=== PATIENT | male | born 1965 | race Caucasian/White ===

== ENCOUNTER → 2024-03-01 06:34 | Outpatient (REF) | payer BC, SELFPAY ==
[2024-03-01 07:13] LABS: Hematocrit 46.6 % (39.0-52.0); Hemoglobin 15.9 g/dL (13.0-18.0); Mean Corp Hgb Conc. 34.1 g/dL (33.0-37.0); Mean Corpuscular Hgb 29.9 pg (27.0-31.0); Mean Corpuscular Volume 87.8 fL (80.0-94.0); Mean Platelet Volume 9.9 fL (7.4-10.4); Platelet Count 155 10^3/uL (130-400); Red Blood Cell Count 5.31 10^6/uL (4.70-6.10); Red Cell Dist. Width 13.4 % (11.5-14.5); White Blood Cell Count 5.5 10^3/uL (4.8-10.8)
[2024-03-01 08:29] LABS: ALT (SGPT) 28 U/L (0-50); AST (SGOT) 27 U/L (17-59); Albumin 4.6 g/dl (3.5-5.0); Alkaline Phosphatase 72 U/L (38-126); Blood Urea Nitrogen 24 mg/dl (9-20); Calcium 9.7 mg/dl (8.4-10.2); Carbon Dioxide 29 mmol/L (22-30); Chloride 104 mmol/L (98-107); Glucose 179 mg/dl (70-99); HDL Cholesterol 44 mg/dl; Potassium 4.8 mmol/L (3.5-5.1); Sodium 141 mmol/L (135-145); Total Bilirubin 1.1 mg/dl (0.2-1.3); Total Cholesterol 287 mg/dl (50-199); Total Protein 7.1 g/dl (6.3-8.2); eGFR > 60.00
[2024-03-01 08:32] LABS: Triglyceride 465 mg/dl (10-149)
[2024-03-01 09:13] LABS: Microalbumin, Random Urine < 0.6 mg/dl (0.6-1.7)
[2024-03-01 11:04] LABS: Glycohemoglobin (HgbA1c) 9.8 % (4.0-5.6)
[2024-03-01 17:42] LABS: LDL Cholesterol, Direct 99 mg/dl
== END ==
LOC: REG 06:34
PROVIDERS: ATTENDING PHYSICIAN Family Medicine
DX: E11.65 Type 2 diabetes mellitus with hyperglycemia (principal)
CPT/HCPCS: 36415; 80053; 80061; 82043; 83036; 84443; 85027

== ENCOUNTER 2024-09-28 12:56 | Inpatient (IN) | payer OTHER, SELFPAY ==
[2024-09-28] VITALS (58 sets, daily range): BP systolic 113–205; BP diastolic 74–119; BMI 30.6
[2024-09-28 09:00] LABS: Glucose - Point of Care 372 mg/dl (70-99)
--- NOTE | 2024-09-28 09:08 | ED.GENMED ---
History of Present Illness
<Jasson Miguel PA-C - Last Filed: 09/28/24 10:37>
General
Chief Complaint: Chest Pain
Source: patient
Exam Limitations: none
Time Seen by Provider: 09/28/24 08:57
History of Present Illness
History of Present Illness:
59-year-old male [id number] diabetic presents with onset of chest tightness with shortness of breath this morning at 730. He was scraping the ice of the scar. During this episode he got diaphoretic. He sat down and rested and the pain
went away. 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 He decided to come here and while walking through the parking lot he developed more chest tightness. Currently on my exam he
has no chest discomfort. He has not been on his diabetic medication since June as he lost his insurance. He was told last visit at the doctor's blood pressure is mildly elevated but he is not treated for it. No recent travel or surgery. No
leg swelling or calf pain. No pleuritic discomfort. He took a full aspirin this morning
Past History
<Jasson Miguel PA-C - Last Filed: 09/28/24 10:37>
Past History
ED Past Medical History: NIDDM
ED Past Surgical History: Other (hernia)
Social History
Tobacco: Non-smoker
Alcohol: Occasional
Drug: Former user
Living: with family
Family History
Family History: Diabetes
Phy Exam
<Jasson Miguel PA-C - Last Filed: 09/28/24 10:37>
Physical Exam
Physical Exam:
General: Well-appearing male no acute respiratory distress
HEENT: Normocephalic atraumatic
Heart: Regular rate and rhythm
Lungs: Clear no wheeze
Abdomen is soft nontender nondistended
Extremities: No cyanosis or edema
Skin: Warm no rash
Scores
<Jasson Miguel PA-C - Last Filed: 09/28/24 10:37>
Heart Score for Chest Pain Patients
STEMI patient?: No
History: Highly Suspicious
ECG: Nonspecific Repolarization
Age: >45 - <65 years
Risk Factors: 1 or 2 Risk Factors
Troponin: </= Normal Limit
Heart Score for Chest Pain Patients: 5
Heart Score Risk: 20.3% MACE over next 6 weeks
Course
<Jasson Miguel PA-C - Last Filed: 09/28/24 10:37>
Orders/Labs/Results
Orders:
Orders
09/28/24 08:54
ECG [Electrocardiogram (*1)] Urgent
Reason for Study: Chest Pain
EKG- Treatment ONCE
09/28/24 09:08
CR Chest - 2 Views Urgent
Comment:
Reason For Exam: chest pain
09/28/24 09:11
Complete Blood Count/With Diff Urgent
Comprehensive Metabolic Panel Urgent
Glycohemoglobin (HgbA1c) Urgent
Troponin I Urgent
09/28/24 09:25
Labetalol HCl [Trandate] 10 mg IV NOW STA
09/28/24 09:45
0.9% Sodium Chloride 1000 ml [Nss] 1,000 ml IV BOLUS
09/28/24 10:18
Add On- LAB Routine
Tests Added?: hgbA1c
Abnormal Lab Results
09/28/24 09/28/24
08:59 09:11
WBC 4.6 L 10^3/uL
(4.8-10.8)
Abs Immat Gran (auto) 0.1 H 10^3/uL
(0-0.05)
Immature Gran % 1.8 H %
(0-0.5)
BUN 25 H mg/dl
(9-20)
Glucose 377 H mg/dl
(70-99)
POC Glucose 372 H mg/dl
(70-99)
09/28/24 09:11
09/28/24 09:11
Vital Signs
Initial and Last Documented VS:
Initial Vital Signs
Temp Pulse Resp Pulse Ox
98.3 F 93 16 98
09/28/24 08:52 09/28/24 08:52 09/28/24 08:52 09/28/24 08:52
Last Documented Vital Signs
Temp Pulse Resp BP Pulse Ox
98.3 F 73 11 163/97 99
09/28/24 08:52 09/28/24 10:30 09/28/24 10:30 09/28/24 10:00 09/28/24 10:30
<Abner Munguia, DO - Last Filed: 09/28/24 09:20>
Orders/Labs/Results
Orders:
Orders
09/28/24 08:54
ECG [Electrocardiogram (*1)] Urgent
Reason for Study: Chest Pain
EKG- Treatment ONCE
09/28/24 09:08
CR Chest - 2 Views Urgent
Comment:
Reason For Exam: chest pain
09/28/24 09:11
Complete Blood Count/With Diff Urgent
Comprehensive Metabolic Panel Urgent
Glycohemoglobin (HgbA1c) Urgent
Troponin I Urgent
09/28/24 09:25
Labetalol HCl [Trandate] 10 mg IV NOW STA
09/28/24 09:45
0.9% Sodium Chloride 1000 ml [Nss] 1,000 ml IV BOLUS
09/28/24 10:18
Add On- LAB Routine
Tests Added?: hgbA1c
Abnormal Lab Results
09/28/24 09/28/24
08:59 09:11
WBC 4.6 L 10^3/uL
(4.8-10.8)
Abs Immat Gran (auto) 0.1 H 10^3/uL
(0-0.05)
Immature Gran % 1.8 H %
(0-0.5)
BUN 25 H mg/dl
(9-20)
Glucose 377 H mg/dl
(70-99)
POC Glucose 372 H mg/dl
(70-99)
09/28/24 09:11
09/28/24 09:11
Vital Signs
Initial and Last Documented VS:
Initial Vital Signs
Temp Pulse Resp Pulse Ox
98.3 F 93 16 98
09/28/24 08:52 09/28/24 08:52 09/28/24 08:52 09/28/24 08:52
Last Documented Vital Signs
Temp Pulse Resp BP Pulse Ox
98.3 F 73 11 163/97 99
09/28/24 08:52 09/28/24 10:30 09/28/24 10:30 09/28/24 10:00 09/28/24 10:30
<Jasson Miguel PA-C - Last Filed: 09/28/24 10:37>
MDM/Problems Addressed
Differential Diagnosis Includes:
Concerning story with exertional chest comfort and shortness of breath and an uncontrolled diabetic hypertension. EKG shows sinus rhythm with nonspecific flattening laterally but no other obvious ischemic changes. Troponin pending. Chest x-ray
pending. Patient is at high risk for ACS. Do not suspect dissection or PE.
Discussed with emergency room attending
<Jasson Miguel PA-C - Last Filed: 09/28/24 10:37>
*Critical Care Note
Total Time (30-74mins, 75-104mins- exclusive of procedures): Not Applicable
<Jasson Miguel PA-C - Last Filed: 09/28/24 10:37>
Update Note
Update Note:
Initial troponin undetectable chest x-ray clear. Patient still pain-free. Seen by cardiology. Will keep in hospital for concern for ACS. He is likely uncontrolled diabetic and hypertensive. Hospitalist made aware spoke with cardiology
ED Attending Note
<Jasson Miguel PA-C - Last Filed: 09/28/24 10:37>
-
Portions of this chart may have been created with voice recognition software.� Occasional wrong word or��sound alike� substitutions may have occurred due to the inherent limitations of voice recognition software.
<Abner Munguia DO - Last Filed: 09/28/24 09:20>
ED Attending Note
Patient seen and examined by attending physician: Yes
I performed the substantive portion of visit, reviewed & personally made and approve the management plan that is documented in note by myself or MARY.: Yes
ED Attending Note:
I have seen and evaluated the patient with a [id number] encounter. I have spoken to the advance practicer provider and involved in the medical history, the physical exam, medical decision making.
Evaluation and management service: agree unless noted differently below.
Results interpretation: agree unless noted differently below.
Focused HPI: 59-year-old male presenting with very concerning story. He is developing chest discomfort with exertion that improves with rest. He does have a history of hypertension, high cholesterol and diabetes. He has been off of his medicine
for quite a while. Because he just renewed his insurance, his PCP just called his medicine back to the pharmacy. Patient has not started his medicines yet. Patient took a full aspirin prior to arrival
Physical exam: Sitting in bed comfortably. No acute distress. No active chest pain at rest
Medical Decision Making: Based on the past medical history and his concerning history, will have cardiology involved early with concern for ACS.
Discharge Plan
Departure
Patient Disposition: Admit
Date of Disposition: 09/28/24
Time of Disposition: 10:37
Presentation/result/management discussed w/ accepting MD/DO: Hospitalist
Discharge Problem:
Chest pain
Prescriptions:
No Action
glimepiride 4 MG tablet
8 mg PO DAILY
rosuvastatin 10 MG tablet
10 mg PO QPM
Referrals:
Ceferino Foley MD [Family Provider] -
Interventions
Interventions:
*Risk Screen - Suicide Last Done: 09/28/24 08:52
*General Assessment Last Done: 09/28/24 09:03
*Neglect/Abuse Screening Last Done: 09/28/24 08:52
ED- Fall Risk Assessment Last Done: 09/28/24 09:03
*ED COVID-19 Vaccine History Last Done: 09/28/24 09:03
ED- Cardiac Assessment Last Done: 09/28/24 09:03
Discharge Date and Time
Print Language: EAST TIMOR[place]
[2024-09-28 09:26] LABS: % Basophils 0.9 % (0-2); % Eosinophils 1.3 % (0-6); % Immature Granulocytes 1.8 % (0-0.5); % Lymphocytes 31.3 % (20.5-51.1); % Neutrophils 57.7 % (42.2-75.2); Absolute Eosinophils 0.1 10^3/uL (0-0.7); Absolute Immature Granulocytes 0.1 10^3/uL (0-0.05); Absolute Lymphocytes 1.4 10^3/uL (1.2-3.4); Absolute Monocytes 0.3 10^3/uL (0.1-0.6); Absolute Neutrophils 2.6 10^3/uL (1.4-6.5); Hematocrit 45.6 % (39.0-52.0); Hemoglobin 16.2 g/dL (13.0-18.0); Mean Corp Hgb Conc. 35.5 g/dL (33.0-37.0); Mean Corpuscular Volume 84.4 fL (80.0-94.0); Mean Platelet Volume 9.7 fL (7.4-10.4); Nucleated Red Blood Cells % 0 % (-); Platelet Count 155 10^3/uL (130-400); Red Cell Dist. Width 12.6 % (11.5-14.5); White Blood Cell Count 4.6 10^3/uL (4.8-10.8)
[2024-09-28] MEDS: TRANDATE 10 MG IV (09:32)
[2024-09-28 09:35] LABS: ALT (SGPT) 27 U/L (0-50); AST (SGOT) 24 U/L (17-59); Albumin 4.3 g/dl (3.5-5.0); Alkaline Phosphatase 101 U/L (38-126); Blood Urea Nitrogen 25 mg/dl (9-20); Calcium 9.4 mg/dl (8.4-10.2); Carbon Dioxide 29 mmol/L (22-30); Chloride 99 mmol/L (98-107); Estimated Creatinine Clearance 80 ml/min; Glucose 377 mg/dl (70-99); Potassium 4.4 mmol/L (3.5-5.1); Sodium 135 mmol/L (135-145); Total Bilirubin 0.9 mg/dl (0.2-1.3); Total Protein 7.6 g/dl (6.3-8.2); eGFR > 60.00
[2024-09-28 09:47] LABS: Troponin I < 0.012 ng/ml
[2024-09-28] MEDS: NSS 1000 IV (09:50)
--- NOTE | 2024-09-28 10:35 | CON.CAR ---
Addendum entered and electronically signed by Toña Vilchis MD 09/28/24 11:25:
I saw and examined the patient.
The Obstetrics Gynecology Physician's note was reviewed and I agree with the note.
Comment: Patient is a 59-year-old gentleman, obese with past medical history of type 2 diabetes, [id number]-[id number], not recently on medications due to insurance reasons, uncontrolled hypertension, family history of premature coronary artery
disease and remote history of cigarette smoking, quitting 4 years ago who presents with recurrent episodes of exertional substernal chest tightness associated with shortness of breath with 3 episodes recurrent since this morning of varying lengths
with concern for possible unstable angina in the setting of multiple cardiovascular risk factors.
Initial troponin I negative at less than 0.012. ECG with no acute ischemic changes.
Lab work and vital signs reviewed. On exam patient is well-appearing, no acute distress, mildly anxious, and daughter at bedside, regular rate, normal S1 and S2, no murmurs, rubs or gallops, abdomen is soft, nontender, nondistended with active
bowel sounds, obese, warm extremities without significant edema.
Recommendations:
1. Given concern for unstable angina, lengthy discussion was had with patient and his family in regards to recommendation for coronary angiogram to rule out obstructive CAD. After reviewing the risk and benefits, patient is agreeable and we will
move forward with urgent heart catheterization.
2. In the meantime, continue with medical therapy of ACS. Of note, patient took 324 mg of aspirin at home this morning prior to presentation to the emergency room.
3. Full echocardiogram to assess biventricular function and rule out any significant valvular abnormalities.
4. Further recommendations based on heart catheterization
Toña Vilchis MD, [facility], [facility]
Original Note:
Consultation
Consultation Request
Date/Time Consultation Performed: 09/28/24
Requesting Provider: Jasson Mukherjee PA-C
Performing Provider: Macrina Prince PA-C for Dr. Vilchis
Reason for Consultation: CP
Medical History
-
Chief Complaint: CP
History of Present Illness:
Patient is a 59-year-old male with past medical history of type 2 diabetes who presents to [facility] for evaluation of chest discomfort. He reports several weeks ago he started cycling for exercise. He reports with this he noted some
mild chest tightness, however he believes it improved after several days of continued exercise. He then states he stopped biking. This morning as he went out to scrape ice off his car, he developed central to left chest tightness with associated
diaphoresis. This was relieved with resting for about 30 minutes or so. He did take 324 mg aspirin at home. He reports he noted it again as he was walking into the ER. He is presently pain-free. He had been on an oral diabetic medication
however stopped it several months ago as he ran out and had lost his insurance. He was supposed to start the medication back today as he is now back on insurance. Most recent hgbA1c 03/01/24 was 9.8%. Initial trop negative. Cardiology consulted for
evaluation.
PMH:
DM2
Remote former smoker
Family history of CAD
Past Medical History
Past Medical History: Other (in HPI)
Social History
Tobacco: Former Smoker (remote)
Alcohol: Binge Drinker (occasional)
Personal:
Living: With Family
Employment: Employed
Family History
Family History: CAD
Allergies / Home Medications
Allergy/AdvReac Type Severity Reaction Status Date / Time
No Known Allergies Allergy Verified 09/28/24 08:52
�Medication �Instructions �Recorded �Confirmed �Type
glimepiride 4 mg tablet 8 mg PO DAILY 02/13/22 02/13/22 History
rosuvastatin 10 mg tablet 10 mg PO QPM 02/13/22 02/13/22 History
Review of Systems
-
History Source: Patient and Family
All other systems: Negative unless noted
Physical Exam
Vital Signs
Temp Pulse Resp BP Pulse Ox
98.3 F 73 11 163/97 99
09/28/24 08:52 09/28/24 10:30 09/28/24 10:30 09/28/24 10:00 09/28/24 10:30
Lab Results
09/28/24 09:11
09/28/24 09:11
Troponin I < 0.012 ng/ml 09/28/24 09:11
Physical Exam
General: No Apparent Distress and Comfortable
HEENT: Normocephalic, Anicteric and Moist Mucous Membranes
Respiratory: Clear and Non Labored Respirations
Cardiac: S1/S2 and Regular Rhythm
GI: Soft, Non Tender, Non Distended and Normal Bowel Sounds
Musculoskeletal: No Clubbing, No Cyanosis and No Edema
Skin: Warm and Dry
Neuro: AO x 3
Impression / Plan
-
Primary Flying I Instructor: none prior to admission
Assessment:
Presentation with CP, concern for USA
Negative trop x1
DM2
HTN
Remote former smoker
Family history of CAD
Plan:
-Patient presents with chest pain/tightness with story concerning for unstable angina
-Presently pain-free
-Troponin negative x 1, trend to peak
-EKG without acute ischemic abnormalities
-Chest x-ray without acute process
-Discussed options for further evaluation of chest discomfort, and given risk factors, and clinical story, would favor proceeding with cardiac catheterization today. Reviewed procedure with patient and family at bedside. Last ate around 7 AM
-Status post 324 mg aspirin prior to arrival to ER today
-Consider initiation of IV heparin if not undergoing urgent cath
-Further recommendations based on results of cardiac catheterization
-Check CVE
-Check hemoglobin A1c
-Discussed with patient and family at bedside, he will need strict control of diabetes, blood pressure, cholesterol moving forward
-Discussed EtOH cessation
-Discussed with ER PA
Data Reviewed
-
EKG: Tracing Personally Visualized and interpreted
Radiology: Report Reviewed by me
Labs: Labs Reviewed by me
Old Records: Reviewed
[2024-09-28 11:05] LABS: Glycohemoglobin (HgbA1c) 11.1 % (4.0-5.6)
--- NOTE | 2024-09-28 11:25 | ITS.CL.CATH ---
Seed Core Operator - Catheterization
Cardiac Catheterization
Procedure Report:
LEFT HEART CATHETERIZATION
Date of Procedure: However 2024
Referring: [facility] emergency room
PROCEDURES:
1. Left heart catheterization, coronary angiogram.
2. Ultrasound-guided access
INDICATION: Patient is a 59-year-old gentleman, obese with past medical history of type 2 diabetes, [id number], not recently on medications due to insurance reasons, uncontrolled hypertension, family history of premature coronary artery
disease and remote history of cigarette smoking, quitting 4 years ago who presents with recurrent episodes of exertional substernal chest tightness associated with shortness of breath with 3 episodes recurrent since this morning of varying lengths
with concern for possible unstable angina in the setting of multiple cardiovascular risk factors.
Initial troponin I negative at less than 0.012. ECG with no acute ischemic changes.
ACCESS: [ ]
Ultrasound was utilized for vascular access. The radial artery was visualized under ultrasound, and the vessel was patent and pulsatile. An image was stored permanently in the patient's medical record. Under direct ultrasound guidance, a 6 Bengali
sheath was inserted into the artery using a micropuncture kit through a modified Seldinger technique.
HEMODYNAMICS : (mmHg)
AO (s/d) : [ ]
LV (s/d) : [ ]
LVEDP : [ ]
CORONARY FINDINGS
DOMINANCE: [ ]
LEFT MAIN: [ ]
LEFT ANTERIOR DESCENDING: [ ]
CIRCUMFLEX: [ ]
RIGHT CORONARY ARTERY: [ ]
VENTRICULOGRAPHY: [ ]
SEDATION: [ ] minutes of procedural sedation was utilized. An independent certified medical aide was present to assist with and help manage the patient's level of consciousness and physiologic status.
RADIATION SUMMARY: Fluoro Time (min): [ ], Dose (mGy): [ ], DAP (Gy.cm2) : [ ]
Closure Device: [ ]
CONCLUSIONS
[ ]
RECOMMENDATIONS
[ ]
Toña Vilchis MD, FACC, [facility]
[2024-09-28 12:22] LABS: ACT-LR - POC 219 Seconds (116-155)
[2024-09-28 13:00] LABS: Glucose - Point of Care 257 mg/dl (70-99)
--- NOTE | 2024-09-28 13:02 | PTCARENOTE ---
Patient arrived to IVU in bed. Right radial band intact with 10 cc of air, POX 96%. Right femoral a-line in place and zeroed. BP 148/67, HR 62, NSR. Patient awake and alert, chest pain free, call scott in reach
[2024-09-28 13:47] LABS: ACT-LR - POC 171 Seconds (116-155)
--- NOTE | 2024-09-28 13:50 | PN.DE.MGMTRT ---
Insulin Management
- -
09/28/2024: Diabetes Management Consult.
59 year old male with PMH: HTN, Obesity, h/o Smoking and T2DM. Pt presented to the ED with recurrent episodes of exertional substernal chest tightness associated with shortness of breath with 3 episodes recurrent of varying lengths with concern for
possible unstable angina in the setting of multiple cardiovascular risk factors. He is S/P Cardiac Cath with plans for CABG next week.
Pt is awake, alert, resting flat in bed, offers no complaints, able to discuss diabetes care. Brother at bedside.
Pt reports that he was taking insulin ~10 years ago when he was initially dx with diabetes and stopped taking his oral meds (doesn't remember the names), 3 months ago due to insurance reasons. Chart review indicates he was taking Glimepiride 8mg
daily. States he uses a CGM- Kamila 2 for glucose monitoring and sees Dr. Foley for diabetes care. A1C 11.1%, Cr 1.1, eGFR >60, Glucose on admission was 377(V), 372 POC, recent POC was 257. He is ordered moderate corrective insulin only. Will start
basal/bolus insulin- Lantus 15 units @ HS and NovoLog 7 units AC. Cont corrective insulin with meals
Will cont to follow and provide glucose meter and insulin instructions.
Diabetes History
- -
Type of Diabetes: 2 requiring insulin
Pre-Admission Diabetes Regimen
09/28/24
09:11
Creatinine 1.1
Lab Results
Hemoglobin A1c 11.1 % (4.0-5.6) H 09/28/24 09:11
Insulin Pump Settings
IP Diabetes Regimen
09/28/24 09/28/24 09/28/24
08:59 09:11 12:59
Glucose 377 H
POC Glucose 372 H 257 H
Patient Education
--- NOTE | 2024-09-28 13:51 | ITS.CL.CATH ---
Sericulturist - Catheterization
Cardiac Catheterization
Procedure Report:
LEFT HEART CATHETERIZATION
Date of Procedure: However 2024
Referring: [facility] emergency room
PROCEDURES:
1. Left heart catheterization, coronary angiogram.
2. Ultrasound-guided access
INDICATION: Patient is a 59-year-old gentleman, obese with past medical history of type 2 diabetes, ayi-[id number]-ijruypopi, not recently on medications due to insurance reasons, uncontrolled hypertension, family history of premature coronary artery
disease and remote history of cigarette smoking, quitting 4 years ago who presents with recurrent episodes of exertional substernal chest tightness associated with shortness of breath with 3 episodes recurrent since this morning of varying lengths
with concern for possible unstable angina in the setting of multiple cardiovascular risk factors.
Initial troponin I negative at less than 0.012. ECG with no acute ischemic changes.
ACCESS:
1. Right radial artery, 6 Malagasy sheath, under ultrasound guidance. Given significant right subclavian artery tortuosity, this access had to be aborted.
2. Right common femoral artery, 6 Malagasy sheath, under ultrasound guidance using a micropuncture kit.
Ultrasound was utilized for vascular access. The radial artery and femoral artery were visualized under ultrasound, and the vessel was patent and pulsatile. An image was stored permanently for each in the patient's medical record. Under direct
ultrasound guidance, a 6 Malagasy sheath was inserted into the artery using a micropuncture kit through a modified Seldinger technique.
HEMODYNAMICS : (mmHg)
AO (s/d) : 144/85
LV (s/d) : 160/4
LVEDP : 20
CORONARY FINDINGS
DOMINANCE: Left
LEFT MAIN: The left main artery is a large-caliber vessel which gives rise to the left anterior descending artery and the left circumflex artery. There is minimal luminal irregularities.
LEFT ANTERIOR DESCENDING: The left main a descending artery is a medium caliber vessel that gives rise to 2 major diagonal branches. Proximal LAD has a tubular 90 to 95% stenosis at the level of the takeoff of D1 which is a medium caliber vessel.
Ostial to proximal D1 has eccentric 80% stenosis. Mid LAD has eccentric 60 to 70% stenosis. Distal to apical LAD has 2 serial 70% stenoses.
CIRCUMFLEX: The left circumflex artery is a medium caliber, dominant vessel which gives rise to 2 small to medium caliber obtuse marginal branches. OM1 is a small to medium caliber vessel with eccentric 70% ostial stenosis. OM 2 is a small caliber
vessel with 80 to 85% stenosis in the midportion.
RIGHT CORONARY ARTERY: The right coronary artery is a small caliber, nondominant vessel with minimal luminal irregularities.
SEDATION: 60 minutes of procedural sedation was utilized. An independent medical billing assistant was present to assist with and help manage the patient's level of consciousness and physiologic status.
RADIATION SUMMARY: Fluoro Time (min): 8.7, Dose (mGy): 526.9, DAP (Gy.cm2) : 36.15
Closure Device: Vascular band over right radial artery, 10 cc of air. Right common femoral arterial sheath will be removed once ACT is less than 170 ms.
CONCLUSIONS
1. Proximal LAD has a tubular 90 to 95% stenosis at the level of the takeoff of D1 which is a medium caliber vessel. Ostial to proximal D1 has eccentric 80% stenosis. Mid LAD has eccentric 60 to 70% stenosis. Distal to apical LAD has 2 serial 70%
stenoses.
2. OM1 is a small to medium caliber vessel with eccentric 70% ostial stenosis.
3. Elevated LVEDP at 20 mmHg.
RECOMMENDATIONS
1. Given poorly controlled diabetes with a hemoglobin A1c of 11, the age of 59-year-old, heart team discussion with CT surgery consult in regards to best treatment strategy including coronary artery bypass grafting versus bifurcational PCI.
2. Full echocardiogram to assess biventricular function and rule out any significant valvular disease.
3. Wean radial band per protocol. Bedrest per protocol.
4. Aggressive management of cardiovascular risk factors.
5. Eventual referral for outpatient cardiac rehab.
Toña Vilcihs MD, FACC, [facility]
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
[2024-09-28] MEDS: NITROSTAT (SUBLINGUAL) 0.4 MG SL (14:01)
[2024-09-28] MEDS: TOPROL XL 25 MG PO (14:01)
--- NOTE | 2024-09-28 14:29 | CM ---
Reviewed chart. Met with Mr. George to review discharge plans. He states prior to admission he resides with his spouse in a one stroy home with five steps to enter. He states prior to admission he was independent with ambulation and adls. He
states he does not have any DME in the home. He thinks he has a prescription plan. Medical work-up in progress. The discharge plan is to return home with his spouse when medically stable.
[2024-09-28 14:30] LABS: INR 0.97; PT 13.4 Sec (11.4-14.6)
[2024-09-28 14:31] LABS: APTT 61.5 Sec (23.4-35.0)
--- NOTE | 2024-09-28 14:36 | HPS.HSE ---
Family Physician
-
Family Physician: Ceferino Foley
Chief Complaint
-
Chest tightness and shortness of breath
History of Present Illness
59-year-old gentleman with past medical history of diabetes mellitus type 2 for which he is on therapy as before but not on any medication due to insurance reasons currently. He was told he has high blood pressure but was not prescribed apparently
any medication. He has a premature family history of heart disease-father in his 60s with heart attack. He was remote tobacco use history 4 years ago. He presented with substernal chest tightness and feeling short of breath which is episodic
and this morning. He was also bit prolonged at this morning so he came to the hospital.
Initial workup which showed negative troponins and nonischemic EKG but there was a concern about unstable angina and went on to have a cardia catheterization today which apparently shows LAD and diagonal lesions( official report pending) and is
being referred to cardiothoracic surgery for evaluation.
Medical History
Past Medical History
Past Medical History: Reports HTN and NIDDM
Past Surgical History: Reports Other (hernia)
Social History
Tobacco: Former Smoker
Alcohol: Occasional
Personal:
Living: With Family
Employment: Employed
Family History
Family History: Early CAD
Allergies / Home Medications
Allergies reflects when Allergies were last updated in [employer]
Home Medications with original date entered in [employer]
Allergy/Medication List:
Allergies
Allergy/AdvReac Type Severity Reaction Status Date / Time
No Known Allergies Allergy Verified 09/28/24 08:52
Home Medications
glimepiride 4 mg tablet 8 mg PO DAILY 02/13/22
rosuvastatin 10 mg tablet 10 mg PO QPM 02/13/22
Review of Systems
-
A 12 point ROS was completed and negative except as noted: Yes
Physical Exam
Vital Signs
Vital Signs
Temp Pulse Resp BP Pulse Ox
98.4 F 66 20 140/92 98
09/28/24 13:02 09/28/24 14:15 09/28/24 13:02 09/28/24 14:06 09/28/24 14:15
Physical Exam
General: Comfortable
Respiratory: Clear and Non Labored Respirations; No Accessory Resp Muscle Use
Cardiac: S1/S2 and Regular Rhythm; No Tachycardia
GI: Soft and Non Tender
Musculoskeletal: No Edema
Neuro: AO x 3
Psych: Calm
Laboratory Results
-
09/28/24 09:11
09/28/24 09:11
Laboratory Results
PT 13.4 Sec (11.4-14.6) 09/28/24 14:06
INR 0.97 09/28/24 14:06
APTT 61.5 Sec (23.4-35.0) H 09/28/24 14:06
Total Bilirubin 0.9 mg/dl (0.2-1.3) 09/28/24 09:11
AST 24 U/L (17-59) 09/28/24 09:11
ALT 27 U/L (0-50) 09/28/24 09:11
Alkaline Phosphatase 101 U/L (38-126) 09/28/24 09:11
Troponin I < 0.012 ng/ml 09/28/24 09:11
Data Reviewed
-
Lab Data: Labs Reviewed by me
Impression/Plan
-
Patient with episodic chest tightness and shortness of breath concerning for unstable angina and discovered to have multivessel CAD. Currently asymptomatic without chest pain. Continue with IV heparin. Referred to cardiothoracic
surgery-evaluation pending. Continue with aspirin and beta-sammy. Continue with statins. Check lipid panel.
No evidence of MA based on troponins. No evidence of CHF currently.
Check an echocardiogram.
Poorly controlled diabetes mellitus type 2-patient's hemoglobin A1c 11.1 today. He was not on his medication due to financial reasons. When stable will start on metformin for now continue with IV insulin and postsurgery will consider SGLT2's.
Diabetic nurse practitioner consulted.
Xabovhmzfskq-gflhpotgj-hswiydfr with above cardiac medication and adjust doses as needed.
Full code
[2024-09-28] MEDS: NITROGLYCERIN PREMIX 250 IV (16:10)
--- NOTE | 2024-09-28 16:14 | PTCARENOTE ---
IV nitro at 5mcg/min started, 2 out 10 left chest pressure. 1 SL nitro given at 1400 with no change. BP 122/79
[2024-09-28 16:22] LABS: Glucose - Point of Care 262 mg/dl (70-99)
--- NOTE | 2024-09-28 16:53 | PTCARENOTE ---
left side chest pressure resolved, Nitro gtt at 5mcg/min
[2024-09-28] MEDS: CRESTOR 40 MG PO (17:56)
[2024-09-28] MEDS: NORVASC 2.5 MG PO (17:56)
[2024-09-28] MEDS: NOVOLOG FLEXPEN-MODERATE RESISTANCE 5 UNITS SC (18:03)
[2024-09-28] MEDS: NOVOLOG FLEXPEN 7 UNITS SC (18:04)
[2024-09-28 18:08] LABS: Glucose - Point of Care 276 mg/dl (70-99)
[2024-09-28] MEDS: HEPARIN 25000 UNITS/250 ML IV (20:02)
[2024-09-28 20:17] LABS: Urine Albumin 1+ (Neg - Trace); Urine Bilirubin Negative (Negative); Urine Character Clear (Clear); Urine Color Yellow; Urine Glucose 3+ (Negative); Urine Ketone Negative (Negative); Urine Leukocyte Negative (Negative); Urine Nitrite Negative (Negative); Urine Occult Blood Negative (Negative); Urine Specific Gravity 1.015 (<1.030); Urine Urobilinogen Negative (Neg - 1+)
[2024-09-28 20:45] LABS: Urine Red Blood Cell 0-2 /HPF (0-2); Urine Squamous Cell 0-2 /LPF (Few); Urine White Cell 0-2 /HPF (0-5)
[2024-09-28 21:18] LABS: Glucose - Point of Care 178 mg/dl (70-99)
[2024-09-28] MEDS: LANTUS 0.15 UNITS SC (21:56)
--- NOTE | 2024-09-28 23:30 | SUR.PHASEI ---
Patient received at change of shift resting in the bed. Right groin puncture with gauze and tegaderm C/D/I, area soft to palpation, bilateral pedal pulses palpable. Right radial puncture site with gauze and tegaderm C/D/I, surrounding area soft to
palpation, bilateral radial pulses +2 to palpation. Nitro gtt initially infusing at 5mcg/min, titrated up to 10mcg/min due to continued mild chest pressure. Heparin gtt initiated per order. Patient on room air, 96% oxygen saturation. Sinus rhythm
with first degree AV block on bus monitor. Patient voided, U/A sent. Plan of care discussed with patient and spouse. Call scott within reach. Care ongoing.
[2024-09-29] VITALS (21 sets, daily range): BP systolic 98–135; BP diastolic 54–86
[2024-09-29 02:36] LABS: Hematocrit 38.9 % (39.0-52.0); Mean Corpuscular Hgb 29.9 pg (27.0-31.0); Mean Corpuscular Volume 83.1 fL (80.0-94.0); Mean Platelet Volume 9.3 fL (7.4-10.4); Platelet Count 168 10^3/uL (130-400); Red Blood Cell Count 4.68 10^6/uL (4.70-6.10); Red Cell Dist. Width 12.9 % (11.5-14.5); White Blood Cell Count 7.5 10^3/uL (4.8-10.8)
[2024-09-29 02:51] LABS: INR 0.97; PT 13.4 Sec (11.4-14.6)
[2024-09-29 02:52] LABS: ALT (SGPT) 21 U/L (0-50); AST (SGOT) 18 U/L (17-59); Albumin 3.9 g/dl (3.5-5.0); Alkaline Phosphatase 86 U/L (38-126); Blood Urea Nitrogen 22 mg/dl (9-20); Calcium 8.8 mg/dl (8.4-10.2); Carbon Dioxide 21 mmol/L (22-30); Chloride 104 mmol/L (98-107); Direct Bilirubin 0.3 mg/dl (0.0-0.4); Estimated Creatinine Clearance 87 ml/min; Glucose 214 mg/dl (70-99); HDL Cholesterol 42 mg/dl; Sodium 135 mmol/L (135-145); Total Bilirubin 0.9 mg/dl (0.2-1.3); Total Cholesterol 234 mg/dl (50-199); Total Protein 6.2 g/dl (6.3-8.2); eGFR > 60.00
[2024-09-29 02:56] LABS: Triglyceride 402 mg/dl (10-149)
[2024-09-29 03:21] LABS: LDL Cholesterol, Direct 93 mg/dl
--- NOTE | 2024-09-29 04:01 | PTCARENOTE ---
Patient received at change of shift resting in the bed. Right groin puncture with gauze and tegaderm C/D/I, area soft to palpation, bilateral pedal pulses palpable. Right radial puncture site with gauze and tegaderm C/D/I, surrounding area soft to
palpation, bilateral radial pulses +2 to palpation. Nitro gtt initially infusing at 5mcg/min, titrated up to 10mcg/min due to continued mild chest pressure. Heparin gtt initiated per order. Patient on room air, 96% oxygen saturation. Sinus rhythm
with first degree AV block on monitoring coordinator. Patient voided, U/A sent. Plan of care discussed with patient and spouse. Call scott within reach. Care ongoing.
[2024-09-29 07:31] LABS: Glucose - Point of Care 211 mg/dl (70-99)
[2024-09-29] MEDS: NORVASC 2.5 MG PO (07:45)
[2024-09-29] MEDS: TOPROL XL 25 MG PO (07:45)
[2024-09-29] MEDS: LOW STRENGTH ASPIRIN 81 MG PO (07:45)
--- NOTE | 2024-09-29 07:45 | PTCARENOTE ---
The patient is aaox3, vss, 97% on RA. NSR with a 1st degree AVB noted on the monitor. Heparin gtt is running at 1200 units/hr. Nitro gtt running at 1.5ml/hr. He has no complaints of pain. His right wrist dressing is c/d/i. His right groin dressing
is c/d/i with scant ecchymosis on surrounding skin. A right radial pulse and a right pedal pulse is noted.
[2024-09-29] MEDS: FLUSH (NSS) 1 FLUSH IV (07:46)
[2024-09-29] MEDS: NOVOLOG FLEXPEN-MODERATE RESISTANCE 3 UNITS SC (08:10)
[2024-09-29] MEDS: NOVOLOG FLEXPEN 7 UNITS SC (08:10)
--- NOTE | 2024-09-29 08:13 | PN.DE.MGMTRT ---
Insulin Management
- -
09/29/2024: Diabetes Management follow up.
59 year old male with PMH: HTN, Obesity, h/o Smoking and T2DM. Pt presented to the ED with recurrent episodes of exertional substernal chest tightness associated with SOB with 3 episodes recurrent of varying lengths with concern for possible
unstable angina in the setting of multiple CV risk factors, S/P Cardiac Cath with plans for CABG next week.
Pt is awake, alert, sitting up at edge of bed, offers no complaints, able to discuss diabetes care. at bedside, all questions answered.
09/28 started basal/bolus insulin, premeal glucose range 254 to 372 requiring 3-5 units of corrective insulin. Received Lantus 15 units @ HS, FBG 211 this AM.
Will increase NovoLog to 10 units AC and Lantus to 20 units @ HS. Cont corrective insulin with meals
Will cont to follow, Pt has CGM in place- Gigit 2 and is already familiar with insulin pen use.
Will add Dietitian consult for Nutrition counseling.
Diabetes History
- -
Type of Diabetes: 2 requiring insulin
Pre-Admission Diabetes Regimen
09/28/24 09/29/24
09:11 02:18
Creatinine 1.1 1.0
Lab Results
Hemoglobin A1c 11.1 % (4.0-5.6) H 09/28/24 09:11
Insulin Pump Settings
IP Diabetes Regimen
09/28/24 09/28/24 09/28/24
08:59 09:11 12:59
Glucose 377 H
POC Glucose 372 H 257 H
09/28/24 09/28/24 09/28/24
16:21 18:03 21:17
Glucose
POC Glucose 262 H 276 H 178 H
09/29/24 09/29/24
02:18 07:29
Glucose 214 H
POC Glucose 211 H
Meal type: Dinner
Amount consumed: 100%
Patient Education
--- NOTE | 2024-09-29 08:51 | W.PN.CARDCBS ---
Addendum entered and electronically signed by Toña Vilchis MD 09/29/24 17:16:
I saw and examined the patient.
The Bucket Turner's note was reviewed and I agree with the note.
Comment: Patient is doing well overall. His 2 out of 10 left-sided chest discomfort has resolved. No shortness of breath. No issues at the right radial access site.
Vital signs and lab work reviewed. Patient is well-appearing, in no acute distress, awake, alert and oriented x 3, regular rate, normal S1 and S2, no murmurs, rubs or gallops, lungs are clear to auscultation bilaterally, abdomen is soft, obese,
nontender, nondistended with active bowel sounds, right radial access site with dressing in place which is clean, dry and intact without evidence of hematoma or bruit, warm extremities without significant edema.
Recommendations:
1. Undergoing CT surgical evaluation with consideration for coronary artery bypass grafting this admission in the setting of ACS, tentatively planned for Wednesday, October 02, 2024.
2. Continue IV heparin, aspirin, high intensity statin, Toprol and Norvasc. We will plan on weaning off nitroglycerin with close monitoring of recurrent symptoms.
3. Defer to primary team in regards to management of diabetes.
4. Echocardiogram showing preserved LV systolic function without significant valvular abnormalities.
Toña Vilchis MD, [facility], [facility]
Original Note:
Today's Communication / Plan
-
CT surgical evaluation underway
Continue IV heparin, aspirin, statin, Toprol, Norvasc
Diabetic management appreciated
Impression / Plan
-
Primary Road Repairer: none prior to admission
Assessment:
Presentation with , [place]
Negative trop x1
MV CAD - LAD/diag
DM2
HTN
Hypertriglyceridemia
Remote former smoker
Family history of CAD
ECHO 09/28/24: EF 58%, no regional wall motion abnormalities noted, mild MR
Plan:
-Patient presented with chest pain and unstable angina
-Underwent cardiac catheterization showing multivessel CAD in LAD/diagonal. CT surgical evaluation for CABG underway - for chest CT and carotid US today
-Chest pain-free overnight
-Continue IV heparin, aspirin, Norvasc, Toprol
-Diabetes poorly controlled, hemoglobin A1c 11%. We discussed importance of strict control moving forward. Appreciate diabetic education/WELT MAKER
-LDL 93. Triglycerides 404. Started on statin therapy
-Discussed with patient and family at bedside
Progress Note - Road Repairer
Subjective
Date of Service: September 29, 2024
No chest pain, shortness of breath overnight
Objective
Labs:
09/29/24 02:18
09/29/24 02:18
Labs
Hgb 14.0 g/dL (13.0-18.0) 09/29/24 02:18
Hct 38.9 % (39.0-52.0) L 09/29/24 02:18
Plt Count 168 10^3/uL (130-400) 09/29/24 02:18
PT 13.4 Sec (11.4-14.6) 09/29/24 02:18
INR 0.97 09/29/24 02:18
APTT 42.0 Sec (23.4-35.0) H 09/29/24 02:18
APTT Cancelled 09/29/24 02:18
Sodium 135 mmol/L (135-145) 09/29/24 02:18
Potassium 4.0 mmol/L (3.5-5.1) 09/29/24 02:18
BUN 22 mg/dl (9-20) H 09/29/24 02:18
Creatinine 1.0 mg/dL (0.7-1.3) 09/29/24 02:18
Glucose 214 mg/dl (70-99) H 09/29/24 02:18
Troponins
09/28/24
09:11
Troponin I < 0.012
Vital Signs and I&O:
Vital Signs
Temp Pulse Resp BP Pulse Ox
98.4 F 72 16 112/78 97
09/29/24 07:27 09/29/24 07:30 09/29/24 07:27 09/29/24 07:26 09/29/24 07:27
Vital Signs
Temp Pulse Resp BP Pulse Ox
98.4 F 72 16 112/78 97
09/29/24 07:27 09/29/24 07:30 09/29/24 07:27 09/29/24 07:26 09/29/24 07:27
Intake & Output
09/27/24 09/28/24 09/29/24 09/30/24
07:59 07:59 07:59 07:59
Intake Total 146 / 146
Output Total 200 / 200
Balance -54 / -54
Physical Exam
Physical Exam
GEN: No distress, awake, alert, oriented x3
HEENT: supple, anicteric, mmm, EOMI
LUNGS: CTA bilaterally, no wheezes/rales
CV: Reg, S1/S2, no murmur
ABD: soft, BS+, NT/ND
EXT: No cyanosis, clubbing, edema
NEURO: Gross non-focal
SKIN: Warm, pink, dry. No rash. Right wrist site clean dry and intact
--- NOTE | 2024-09-29 10:03 | W.PN.UPDATE ---
Addendum entered and electronically signed by Ryan Ace MD 09/30/24 11:03:
CARDIAC SURGERY ATTENDING:
I had a long conversation with Mr. Abner George and his . We reviewed his coronary pathology, discussed the proposed operative interventions, reviewed the periprocedural risks (including, but not limited to, , stroke, NC, arrhythmia, PNA,
AZEEM/F, bleeding, and infection), reviewed the expected in-hospital postprocedural course, and discussed expected outpatient recovery. All questions were answered to the best of my abilities. The patient is agreeable to proceed.
We will plan to proceed to the OR this coming 10/02/2024. I anticipate REGINALD to LAD, GSV to D1/D2, and possible GSV to OM1.
Thank you for the opportunity to participate in the care of this kind gentleman.
Please call with any questions or concerns.
Ryan Ace MD
[phone]
Original Note:
Update Note
Progress Note Update
Procedure Type:�Isolated CABG
Perioperative Outcome Estimate %
Operative Mortality 0.405%
Morbidity & Mortality 3.05%
Stroke 0.455%
Renal Failure 0.394%
Reoperation 1.66%
Prolonged Ventilation 1.37%
Deep Sternal Wound Infection 0.126%
Long Hospital Stay (>14 days) 1.17%
Short Hospital Stay (<6 days)* 74.3%
Clinical Summary
Planned Surgery: Isolated CABG, Urgent, First cardiovascular surgery
Demographics: 59 year old, male, 93.8kg, 175cm, BMI: 30.6 kg/m�
Lab Values: Creatinine: 1.1 mg/dL, Hematocrit: 45.6%, WBC Count: 4.6 10�/�L, Platelet Count: 386242 cells/�L
PreOp Medications: Oral diabetes control
Substance Abuse: Former smoker
Risk Factors / Comorbidities: Diabetes Mellitus , Hypertension
Cardiac Status: Ejection Fraction = 58%
Coronary Artery Disease: 2 vessels diseased, Unstable Angina
Valve Disease: Mild MR
[2024-09-29 10:16] LABS: APTT 52.1 Sec (23.4-35.0)
--- NOTE | 2024-09-29 11:03 | CM ---
Reviewed chart. Met with and Mrs. George to review discharge plans. Prior to admission he resides with his spouse in a one story home with five steps to enter. Prior to admission he was independent with ambulation and adls. He does not
have any DME in the home. He thinks he has a prescription plan. His spouse works outside the home. She recently started on a new job. Medical work-up in progress. The discharge plan is to return home with his spouse and a home visit by the
Transitional Care Nurse when medically stable.
We reviewed pre-op and post-op routines. We briefly reviewed the shower instructions. We reviewed restrictions including sternal precautions and driving restrictions. Gave him the Cardiothoracic Surgery Educational Booklet. We discussed a home
visit by the Transitional Care Nurse. He is agreeable to a home visit. The plan is to be determined by the surgeon.
[2024-09-29 11:54] LABS: Glucose - Point of Care 170 mg/dl (70-99)
--- NOTE | 2024-09-29 11:55 | PTCARENOTE ---
Nitroglycerin gtt discontinued per Dr. Hawkins.
[2024-09-29] MEDS: NOVOLOG FLEXPEN-MODERATE RESISTANCE 1 UNITS SC (12:18)
[2024-09-29] MEDS: NOVOLOG FLEXPEN 10 UNITS SC ×2 (12:18→18:03)
--- NOTE | 2024-09-29 13:53 | W.PN.HOSP.TC ---
Today's Communication/Plan
-
Continue with current cardiac meds and including IV heparin.
CT surgery eval underway.
Assessment / Plan
Assessment / Plan
Patient with episodic chest tightness and shortness of breath concerning for unstable angina and discovered to have multivessel CAD. Remains asymptomatic without chest pain. Continue with IV heparin. CT surgery evaluation underway. Continue with
aspirin and beta-sammy. Continue with statins. Lipid panel noted.
No evidence of [place] based on troponins. No evidence of CHF currently.
Echocardiogram shows normal EF. No significant valvular abnormality.
Poorly controlled diabetes mellitus type 2-patient's hemoglobin A1c 11.1 . He was not on his medication due to financial reasons. When stable will start on metformin for now continue with IV insulin and postsurgery will consider SGLT2's. Diabetic
nurse practitioner following.
Rirkuacildel-jtaqddjzm-upupiyve with above cardiac medication and adjust doses as needed.
Full code
Anticipated Discharge: > 48 hours
Subjective/Interval History
-
Date of Service: September 29, 2024
Patient asymptomatic now. No chest pain or shortness of breath. No palpitations.
No nausea vomiting.
Objective Data
-
Labs:
Laboratory Results
09/29/24 09/29/24 09/29/24
02:18 02:18 09:51
WBC 7.5
Hgb 14.0
Hct 38.9 L
Plt Count 168
PT 13.4
INR 0.97
APTT Cancelled 42.0 H 52.1 H
Sodium 135
Potassium 4.0
Chloride 104
Carbon Dioxide 21 L
BUN 22 H
Creatinine 1.0
Glucose 214 H
Calcium 8.8
Total Bilirubin 0.9
AST 18
ALT 21
Alkaline Phosphatase 86
09/29/24
16:40
WBC
Hgb
Hct
Plt Count
PT
INR
APTT Pending
Sodium
Potassium
Chloride
Carbon Dioxide
BUN
Creatinine
Glucose
Calcium
Total Bilirubin
AST
ALT
Alkaline Phosphatase
Vital Signs:
Vital Signs
Temp Pulse Resp BP Pulse Ox
98.3 F 69 20 115/81 94
09/29/24 11:50 09/29/24 12:00 09/29/24 11:50 09/29/24 11:50 09/29/24 11:50
I&O
09/28/24 09/29/24 09/30/24
06:59 06:59 06:59
Intake Total 146 / 146
Output Total 200 / 200
Balance -54 / -54
Review of Systems
-
Constitutional: Denies Fever
Abdomen/GI: Denies Abdominal Pain
Neuro: Denies Dizzy
Physical Exam
-
General: No Apparent Distress
HEENT: Moist Mucous Membranes
Respiratory: Clear to Auscultation
Cardiac: Regular Rhythm and S1/S2
GI: Soft
Neuro: AO x 3
Psych: Calm
Data Reviewed
-
Labs: Labs Reviewed by me
[2024-09-29] MEDS: HEPARIN 25000 UNITS/250 ML IV (15:29)
[2024-09-29 17:27] LABS: Glucose - Point of Care 114 mg/dl (70-99)
[2024-09-29] MEDS: CRESTOR 40 MG PO (18:02)
[2024-09-29] MEDS: NOVOLOG FLEXPEN-MODERATE RESISTANCE SC (18:03)
[2024-09-29] MEDS: NITROGLYCERIN PREMIX 250 IV (20:47)
--- NOTE | 2024-09-29 22:21 | PTCARENOTE ---
received patient at the change of shift. AAOx3. denies any cp/sob. independent in the room. SR with a first degree on tele 60s-70s. bp stable. heparin gtt infusing per order. 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 reviewed plan of care with patient
and verbalized understanding. educated patient to inform RN with any changes.
discussed plan of care with Levy NIETO PA. restart and keep nitro gtt at low rate- 5 mcg/min. reviewed with patient and verbalized understanding. patient denies cp. educated patient to inform RN with any other symptoms.
[2024-09-29] MEDS: LANTUS 0.2 UNITS SC (22:44)
[2024-09-29 22:45] LABS: Glucose - Point of Care 100 mg/dl (70-99)
[2024-09-29 23:06] LABS: APTT 100.2 Sec (23.4-35.0)
[2024-09-30 04:36] VITALS: BP 113/75
[2024-09-30 05:14] LABS: Hematocrit 41.1 % (39.0-52.0); Hemoglobin 14.5 g/dL (13.0-18.0); Mean Corp Hgb Conc. 35.3 g/dL (33.0-37.0); Mean Corpuscular Hgb 30.1 pg (27.0-31.0); Mean Corpuscular Volume 85.3 fL (80.0-94.0); Mean Platelet Volume 9.8 fL (7.4-10.4); Platelet Count 187 10^3/uL (130-400); Red Blood Cell Count 4.82 10^6/uL (4.70-6.10); Red Cell Dist. Width 12.7 % (11.5-14.5); White Blood Cell Count 8.4 10^3/uL (4.8-10.8)
[2024-09-30 07:32] VITALS: BP 115/77
[2024-09-30 07:36] LABS: Glucose - Point of Care 96 mg/dl (70-99)
[2024-09-30] MEDS: NORVASC 2.5 MG PO (07:37)
[2024-09-30] MEDS: FLUSH (NSS) 1 FLUSH IV (07:37)
[2024-09-30] MEDS: TOPROL XL 25 MG PO (07:37)
[2024-09-30] MEDS: LOW STRENGTH ASPIRIN 81 MG PO (07:37)
--- NOTE | 2024-09-30 07:45 | PTCARENOTE ---
The patient is aaox3, vital signs are stable, NSR with a 1st degree AVB is noted on the monitor. His right wrist puncture site is BULKHEAD CARPENTER. A right radial pulse is noted. His right groin puncture site is SHERRY and with some ecchymosis noted. Heparin gtt
running at 1400 units/hr. Nitro gtt running at 0.8 ml/hr. He has no compliant if chest pain or chest pressure. I encouraged the patient to ambulate in the halls.
[2024-09-30] MEDS: NOVOLOG FLEXPEN 10 UNITS SC ×3 (08:15→18:00)
[2024-09-30] MEDS: NOVOLOG FLEXPEN-MODERATE RESISTANCE SC ×3 (08:15→17:04)
[2024-09-30] MEDS: HEPARIN 25000 UNITS/250 ML IV (09:25)
--- NOTE | 2024-09-30 09:57 | W.PN.HOSP.TC ---
Today's Communication/Plan
-
Continue current treatments
CT surgery evaluation underway
Assessment / Plan
Assessment / Plan
Patient with episodic chest tightness and shortness of breath concerning for unstable angina and discovered to have multivessel CAD. Remains asymptomatic without chest pain. Continue with IV heparin. CT surgery evaluation underway. Continue with
aspirin and beta-sammy. Continue with statins. Lipid panel noted.
No evidence of TN based on troponins. No evidence of CHF currently.
Echocardiogram shows normal EF. No significant valvular abnormality.
Poorly controlled diabetes mellitus type 2-patient's hemoglobin A1c 11.1 . He was not on his medication due to financial reasons. When stable will start on metformin for now continue with IV insulin and postsurgery will consider SGLT2's. This
morning blood sugar is okay. No hypoglycemias.
Bwyryguervoj-zywydhabw-zalnlajs with above cardiac medication and adjust doses as needed.
Full code
Anticipated Discharge: > 48 hours
Subjective/Interval History
-
Date of Service: September 30, 2024
No further chest pain or shortness of breath. Tolerating IV nitro without headache.
Objective Data
-
Labs:
Laboratory Results
09/29/24 09/30/24
22:40 04:36
WBC 8.4
Hgb 14.5
Hct 41.1
Plt Count 187
APTT 100.2 H 100.0 H
Vital Signs:
Vital Signs
Temp Pulse Resp BP Pulse Ox
98.1 F 67 16 115/77 98
09/30/24 07:32 09/30/24 07:32 09/30/24 07:32 09/30/24 07:32 09/30/24 07:32
I&O
09/29/24 09/30/24 10/01/24
06:59 06:59 06:59
Intake Total 146 / 146 450 / 450
Output Total 200 / 200
Balance -54 / -54 450 / 450
Review of Systems
-
Constitutional: Denies Fever
Abdomen/GI: Denies Abdominal Pain, Nausea or Vomiting
Neuro: Denies Dizzy
Physical Exam
-
General: Comfortable
Respiratory: Non Labored Respirations and Accessory Resp Muscle Use
Cardiac: Regular Rhythm and S1/S2; Negative Tachycardic
Neuro: AO x 3
Data Reviewed
-
Labs: Labs Reviewed by me
--- NOTE | 2024-09-30 11:47 | W.PN.CARDCBS ---
Addendum entered and electronically signed by Misha Wang MD 09/30/24 14:17:
I saw and examined the patient.
The Mounter [employer]'s note was reviewed and I agree with the note.
Comment: Briefly, 59-year-old man presenting with chest discomfort concerning for unstable angina found to have multivessel CAD by left heart catheterization on 09/28/2023
Resting comfortably today in the IVU
No further chest discomfort on low-dose IV nitro, would continue for now
Maintaining sinus rhythm on telemetry
Physical exam is unremarkable
Continue medical management with aspirin, high intensity statin, beta-sammy, calcium channel sammy and heparin gtt
Tentative plan for CABG early this week
Rest per Macrina Prince
Original Note:
Today's Communication / Plan
-
planned for CABG 10/02/24
chest pain free
Impression / Plan
-
Primary Bartender Server: none prior to admission
Assessment:
Presentation with , [facility]
Negative trop x1
MV CAD - LAD/diag
DM2
HTN
Hypertriglyceridemia
Remote former smoker
Family history of CAD
ECHO 09/28/24: EF 58%, no regional wall motion abnormalities noted, mild MR
Plan:
-Patient presented with chest pain and unstable angina
-Underwent cardiac catheterization showing multivessel CAD in LAD/diagonal.
-carotid US without significant stenosis
-planned for CABG Wednesday10/02/24
-Chest pain-free
-Continue IV heparin, low dose IV nitro @5, aspirin, Norvasc, Toprol
-Diabetes poorly controlled, hemoglobin A1c 11%, will need strict control moving forward. Appreciate diabetic education/FIRE APPARATUS ENGINEER
-LDL 93. Triglycerides 404. Started on statin therapy
-Discussed with patient and family at bedside
Progress Note - Bartender Server
Subjective
Date of Service: September 30, 2024
no issues overnight
Objective
Labs:
09/30/24 04:36
09/29/24 02:18
Labs
Hgb 14.5 g/dL (13.0-18.0) 09/30/24 04:36
Hct 41.1 % (39.0-52.0) 09/30/24 04:36
Plt Count 187 10^3/uL (130-400) 09/30/24 04:36
PT 13.4 Sec (11.4-14.6) 09/29/24 02:18
INR 0.97 09/29/24 02:18
APTT 100.0 Sec (23.4-35.0) H 09/30/24 04:36
Sodium 135 mmol/L (135-145) 09/29/24 02:18
Potassium 4.0 mmol/L (3.5-5.1) 09/29/24 02:18
BUN 22 mg/dl (9-20) H 09/29/24 02:18
Creatinine 1.0 mg/dL (0.7-1.3) 09/29/24 02:18
Glucose 214 mg/dl (70-99) H 09/29/24 02:18
Troponins
09/28/24
09:11
Troponin I < 0.012
Vital Signs and I&O:
Vital Signs
Temp Pulse Resp BP Pulse Ox
98.1 F 65 16 115/77 98
09/30/24 07:32 09/30/24 10:00 09/30/24 07:32 09/30/24 07:32 09/30/24 07:32
Vital Signs
Temp Pulse Resp BP Pulse Ox
98.1 F 65 16 115/77 98
09/30/24 07:32 09/30/24 10:00 09/30/24 07:32 09/30/24 07:32 09/30/24 07:32
Intake & Output
09/28/24 09/29/24 09/30/2425
07:59 07:59 07:59 07:59
Intake Total 146 / 146 450 / 450
Output Total 200 / 200
Balance -54 / -54 450 / 450
Physical Exam
Physical Exam
GEN: No distress, awake, alert, oriented x3
HEENT: supple, anicteric, mmm, EOMI
LUNGS: CTA bilaterally, no wheezes/rales
CV: Reg, S1/S2, no murmur
ABD: soft, BS+, NT/ND
EXT: No cyanosis, clubbing, edema
NEURO: Gross non-focal
SKIN: Warm, pink, dry. No rash.
[2024-09-30 12:10] VITALS: BP 120/87
[2024-09-30 12:10] LABS: Glucose - Point of Care 113 mg/dl (70-99)
--- NOTE | 2024-09-30 15:14 | PTCARENOTE ---
Patient received from Jaclyn RN at 1000; AAOx3, responds spontaneously to RN and follows commands; VSS; SR with 1st degree AVB on monitor; +2 DP and radial pulses; Lungs clear; SpO2 96-100% on RA; IS 3500 ml; Normoactive BS; Patient urinating in
bathroom independently; Right radial puncture site approximated and SHERRY, right femoral puncture site approximated, ecchymotic, and SERVICE LIAISON REPRESENTATIVE; PIVx1 #20 LAC; Heparin and nitro infusing - see nursing flowsheets for further details; Patient denies any chest
pain at this time; See nursing documentation for further information
[2024-09-30 17:00] VITALS: BP 123/85
[2024-09-30 17:03] LABS: Glucose - Point of Care 90 mg/dl (70-99)
[2024-09-30] MEDS: CRESTOR 40 MG PO (18:00)
[2024-09-30 19:56] VITALS: BP 134/84
[2024-09-30 21:18] LABS: Glucose - Point of Care 152 mg/dl (70-99)
[2024-09-30 22:25] VITALS: BP 114/80
[2024-09-30] MEDS: LANTUS 0.2 UNITS SC (22:25)
--- NOTE | 2024-09-30 23:33 | PTCARENOTE ---
received patient at the change of shift. AAOx3. independent in the room. denies any cp/sob. heparin and nitro gtt infusing per order. SR with a first degree on tele 60s. bp stable. cath sites intact/SHERRY. educated patient to inform RN with any
changes overnight. call scott within reach.
[2024-10-01] MEDS: HEPARIN 25000 UNITS/250 ML IV ×2 (03:16→22:32)
[2024-10-01 03:18] VITALS: BP 114/85
[2024-10-01 03:27] LABS: Glucose - Point of Care 72 mg/dl (70-99)
--- NOTE | 2024-10-01 03:33 | PTCARENOTE ---
patients own glucose monitor beeping this morning. on his own monitor- BG 67. checked a fingerstick- BG 72. patient asymptomatic. requested a juice 'just to be safe.'
[2024-10-01 07:49] VITALS: BP 134/86
[2024-10-01 07:53] LABS: Glucose - Point of Care 95 mg/dl (70-99)
[2024-10-01] MEDS: NOVOLOG FLEXPEN-MODERATE RESISTANCE SC ×2 (07:59→13:10)
[2024-10-01] MEDS: LOW STRENGTH ASPIRIN 81 MG PO (08:07)
[2024-10-01] MEDS: NORVASC 2.5 MG PO (08:07)
[2024-10-01] MEDS: TOPROL XL 25 MG PO (08:07)
[2024-10-01] MEDS: NOVOLOG FLEXPEN 10 UNITS SC ×3 (08:08→16:52)
--- NOTE | 2024-10-01 08:15 | PTCARENOTE ---
Patient received from insurance professional resting on side of bed, ambulatory ad promise, denies pain. NSR via cm, SaO2 @ 97% on RA. Heparin and NTG gtts infusing, see work list for titrations. Patient updated to plan of care for the day, in agreement.
--- NOTE | 2024-10-01 09:50 | W.PN.HOSP.TC ---
Today's Communication/Plan
-
CABG in am
CW current tx
Assessment / Plan
Assessment / Plan
Patient with episodic chest tightness and shortness of breath concerning for unstable angina and discovered to have multivessel CAD. Remains asymptomatic without chest pain. Continue with IV heparin. Continue with aspirin and beta-sammy.
Continue with statins. Lipid panel noted.
No evidence of CA based on troponins. No evidence of CHF currently.
Echocardiogram shows normal EF. No significant valvular abnormality.
Plan for CABG in am noted.
Poorly controlled diabetes mellitus type 2-patient's hemoglobin A1c 11.1 . He was not on his medication due to financial reasons. When stable will start on metformin for now continue with IV insulin and postsurgery will consider SGLT2's. This
morning blood sugar is okay. No hypoglycemias.
Yfjaihhhxvkl-szbpvfkyf-trkltxov with above cardiac medication and adjust doses as needed.
Full code
Anticipated Discharge: > 48 hours
Subjective/Interval History
-
Date of Service: October 01, 2024
Voicing no specific complaints.
Denies any chest pain or shortness of breath.
Objective Data
-
Labs:
Laboratory Results
10/01/24 10/01/24
03:22 10:15
APTT 126.0 H Pending
Vital Signs:
Vital Signs
Temp Pulse Resp BP Pulse Ox
98.3 F 66 17 134/86 97
10/01/24 07:52 10/01/24 08:44 10/01/24 07:52 10/01/24 08:07 10/01/24 07:58
I&O
09/30/24 10/01/24 10/02/24
06:59 06:59 06:59
Intake Total 450 / 450 1347.6 / 1347.6 264 / 264
Balance 450 / 450 1347.6 / 1347.6 264 / 264
Review of Systems
-
Constitutional: Denies Fever
EENT: Denies Sore Throat
Respiratory: Denies Cough
Abdomen/GI: Denies Abdominal Pain, Nausea or Vomiting
Neuro: Denies Dizzy
Physical Exam
-
General: Comfortable
Respiratory: Non Labored Respirations; Negative Accessory Resp Muscle Use
Cardiac: Regular Rhythm and S1/S2; Negative Tachycardic
Neuro: AO x 3
[2024-10-01 11:32] LABS: APTT 95.3 Sec (23.4-35.0)
[2024-10-01 11:49] VITALS: BP 141/88
[2024-10-01 13:10] LABS: Glucose - Point of Care 102 mg/dl (70-99)
--- NOTE | 2024-10-01 13:40 | W.PN.CARDCBS ---
Today's Communication / Plan
-
Continue current cardiac meds
Impression / Plan
-
Primary Typesetter Perforator Operator: none prior to admission
Assessment:
Presentation with , [place]
Negative trop x1
MV CAD by cath 09/28 - LAD/diag
Poorly controlled DM2
HTN
Hypertriglyceridemia
Remote former smoker
Family history of CAD
ECHO 09/28/24: EF 58%, no regional wall motion abnormalities noted, mild MR
Plan:
-Patient presented with chest pain and unstable angina
-Underwent cardiac catheterization showing multivessel CAD in LAD/diagonal
-Planned for CABG Wednesday10/02/24
-Remains chest pain-free on low dose nitro gtt
-Continue medical management with aspirin, high intensity statin, IV heparin. Norvasc and Toprol as anti-anginals.
-Diabetes poorly controlled, hemoglobin A1c 11%, will need strict control moving forward. Appreciate diabetic education/CALL PERSON
-LDL 93. Triglycerides 404. Started on statin therapy
Progress Note - Typesetter Perforator Operator
Subjective
Date of Service: October 01, 2024
No acute overnight events. Resting comfortably today out of bed to chair. No further episodes of chest pressure/discomfort. No shortness of breath.
Objective
Labs:
09/30/24 04:36
09/29/24 02:18
Labs
Hgb 14.5 g/dL (13.0-18.0) 09/30/24 04:36
Hct 41.1 % (39.0-52.0) 09/30/24 04:36
Plt Count 187 10^3/uL (130-400) 09/30/24 04:36
PT 13.4 Sec (11.4-14.6) 09/29/24 02:18
INR 0.97 09/29/24 02:18
APTT 95.3 Sec (23.4-35.0) H 10/01/24 11:11
Sodium 135 mmol/L (135-145) 09/29/24 02:18
Potassium 4.0 mmol/L (3.5-5.1) 09/29/24 02:18
BUN 22 mg/dl (9-20) H 09/29/24 02:18
Creatinine 1.0 mg/dL (0.7-1.3) 09/29/24 02:18
Glucose 214 mg/dl (70-99) H 09/29/24 02:18
Vital Signs and I&O:
Vital Signs
Temp Pulse Resp BP Pulse Ox
98.2 F 62 16 141/88 99
10/01/24 11:50 10/01/24 11:50 10/01/24 11:50 10/01/24 11:49 10/01/24 11:50
Vital Signs
Temp Pulse Resp BP Pulse Ox
98.2 F 62 16 141/88 99
10/01/24 11:50 10/01/24 11:50 10/01/24 11:50 10/01/24 11:49 10/01/24 11:50
Intake & Output
09/29/24 09/30/24 10/01/24 10/02/24
06:59 06:59 06:59 06:59
Intake Total 146 / 146 450 / 450 1347.6 / 1347.6 264 / 264
Output Total 200 / 200
Balance -54 / -54 450 / 450 1347.6 / 1347.6 264 / 264
Physical Exam
Physical Exam
Gen: NAD, AAOx3
HEENT: NC/AT, sclera anicteric
Neck: No JVD
CV: RRR, NL s1/s2, no M/R/G
Lungs: CTAB
Abd: S/ND
Ext: No LE edema
Skin: Warm, dry
Neuro: Non-focal
[2024-10-01 16:12] VITALS: BP 125/79
--- NOTE | 2024-10-01 16:21 | PTCARENOTE ---
VS obtained, stable. Denies pain. Patient and all belongings transferred to CVICU room 2263 in anticipation of CVOR in am.
--- NOTE | 2024-10-01 16:39 | PTCARENOTE ---
pt received from IVU RN, oriented, OOB in chair. SR on the monitor, HR 60s. no c/o CP or SOB. heparin and nitro gtts running as ordered. pt on RA. PIV. independent in room. family at bedside.
[2024-10-01 16:52] LABS: Glucose - Point of Care 164 mg/dl (70-99)
[2024-10-01] MEDS: NOVOLOG FLEXPEN-MODERATE RESISTANCE 1 UNITS SC (16:52)
[2024-10-01] MEDS: CRESTOR 40 MG PO (17:19)
[2024-10-01 17:43] LABS: APTT 100.8 Sec (23.4-35.0)
[2024-10-01 20:00] VITALS: BP 116/78
--- NOTE | 2024-10-01 20:00 | PTCARENOTE ---
Report received from CLIFF Littlejohn. Pt assessed. VS done. See MAR. Pt without c/o CP, dyspnea, or other anginal symptoms. NTG gtt at 5 mcg/min. Heparin gtt at 1300 units/hr. Pt awake, alert, oriented x 4. Speech clear. Moves all extremities equally. Pt
on room air. BBS present. O2 sat 93-95%. Audible heart tones. Pt in SR-SB. Rate 59-70 bpm. For pulse and wound assessments, see flowsheets. Belly soft, nontender. Normoactive bowel sounds x 4. Pt voids ad promise in toilet. Clear, yellow urine. at
bedside. Ongoing plan of care.
[2024-10-01 22:53] LABS: Glucose - Point of Care 103 mg/dl (70-99)
[2024-10-01 23:00] VITALS: BP 115/84
[2024-10-02] VITALS (19 sets, daily range): BP systolic 70–130; BP diastolic 57–91; BMI 29.8
--- NOTE | 2024-10-02 | PTCARENOTE ---
Pt clipped and prepped for CVOR per protocol. Pt given bed bath with Chlorhexidine gluconate, followed by CHG bath. Linens and gown changed. Pt denies CP, ORTIZ, and anginal symptoms . Glucose 103. Talked with Levy BEAR. Lantus dose reduced to 10
units SHA. Levy at bedside to see ecchymotic R groin site. R groin remains soft, no hematoma, nontender. Palpable + 2 R DP. Heparin and NTG gtts remain infusing. VS done. See flowsheets. Ongoing plan of care. home for evening. Will return at
0530.
[2024-10-02] MEDS: LANTUS SC (01:00)
[2024-10-02] MEDS: LANTUS 0.1 UNITS SC (01:01)
[2024-10-02 06:04] LABS: Hematocrit 40.1 % (39.0-52.0); Mean Corp Hgb Conc. 34.9 g/dL (33.0-37.0); Mean Corpuscular Volume 85.9 fL (80.0-94.0); Mean Platelet Volume 9.5 fL (7.4-10.4); Platelet Count 150 10^3/uL (130-400); Red Blood Cell Count 4.67 10^6/uL (4.70-6.10); White Blood Cell Count 6.8 10^3/uL (4.8-10.8)
[2024-10-02] MEDS: BACTROBAN 2% OINTMENT 1 APPLIC NASAL ×2 (06:13→20:00)
[2024-10-02] MEDS: LOPRESSOR 25 MG PO (06:14)
[2024-10-02] MEDS: PROTONIX 40 MG PO (06:15)
[2024-10-02] MEDS: MAGNESIUM OXIDE 500 MG PO (06:15)
--- NOTE | 2024-10-02 06:45 | PTCARENOTE ---
Pt given 2nd CHG bath and wipe bath. NPO since MN. Pre-op meds given. Family at bedside. Dr. Ace in to talk with family. Heparin gtt remained on en route to OR. NTG gtt off at 0645. PRIMARY SCHOOL PRINCIPAL made aware at handoff. Pt without c/o CP, no other anginal
symptoms reported. Remains in SR. Normotensive.
[2024-10-02 07:27] LABS: ACT+ - POC 134 Seconds (82-134)
[2024-10-02 07:57] LABS: Urine Albumin Negative (Neg - Trace); Urine Bilirubin Negative (Negative); Urine Character Slightly Cloudy (Clear); Urine Color Yellow; Urine Glucose Negative (Negative); Urine Ketone 1+ (Negative); Urine Leukocyte Negative (Negative); Urine Nitrite Negative (Negative); Urine Occult Blood 3+ (Negative); Urine Urobilinogen Negative (Neg - 1+)
[2024-10-02 08:05] LABS: Urine Bacteria Few (Negative); Urine Squamous Cell 0-2 /LPF (Few)
--- NOTE | 2024-10-02 08:30 | PN.DE.MGMTRT ---
Insulin Management
- -
10/02/2024: Diabetes Management follow up.
59 year old male with PMH: HTN, Obesity, h/o Smoking and T2DM. Pt presented to the ED with recurrent episodes of exertional substernal chest tightness associated with SOB with 3 episodes recurrent of varying lengths with concern for possible
unstable angina in the setting of multiple CV risk factors, S/P Cardiac Cath with plans for CABG next week.
Pt off the floor to the OR and unavailable for interview.
He has been NPO since HI. Glucose low normal, 10/01 premeal 95 to 164. No fasting glucose obtained this morning.
Plan to start glycemic protocol post-operatively x48 hrs.
Will cont to follow and assess when appropriate to transition back to SQ insulin
Pt has CGM in place- Kamila 2 and is already familiar with insulin pen use.
Diabetes History
- -
Type of Diabetes: 2 requiring insulin
Pre-Admission Diabetes Regimen
Lab Results
Hemoglobin A1c 11.1 % (4.0-5.6) H 09/28/24 09:11
Insulin Pump Settings
IP Diabetes Regimen
10/01/24 10/01/24 10/01/24
13:09 16:50 22:51
POC Glucose 102 H 164 H 103 H
Meal type: Lunch
Meal type: Breakfast
Amount consumed: 100%
Amount consumed: 100%
Patient Education
--- NOTE | 2024-10-02 09:12 | W.PN.UPDATE ---
Update Note
Progress Note Update
Pt in OR for CT surgery.
Once changed to CT surgery service, will sign off.
[2024-10-02 09:21] LABS: ACT+ - POC 505 Seconds (82-134)
[2024-10-02 09:36] LABS: Glucose - POC 107 mg/dl (70-99); HCO3 - POC 23 mmol/L (21-28); Hematocrit - POC 39 % PCV (42-52); Hemodilution- POC No; Hemoglobin Calculated - POC 13.3; Ionized Calcium - POC 1.25 mmol/L (1.15-1.33); O2 Saturation %Calculated-POC 93.8 % (94-98); PCO2 - POC 37 mmHg (35-48); PO2 - POC 70 mmHg (83-108); POC Comment PRE; Potassium - POC 3.9 mmol/L (3.5-5.1); Sodium - POC 138 mmol/L (136-145); Specimen Type - POC Arterial
[2024-10-02 09:47] LABS: ACT+ - POC 629 Seconds (82-134)
[2024-10-02 09:57] LABS: B.E. - POC 1.1 mmol/L; Glucose - POC 137 mg/dl (70-99); HCO3 - POC 27 mmol/L (21-28); Hematocrit - POC 33 % PCV (42-52); Hemodilution- POC Yes; Hemoglobin Calculated - POC 11.1; Ionized Calcium - POC 1.06 mmol/L (1.15-1.33); PCO2 - POC 45 mmHg (35-48); PO2 - POC 548 mmHg (83-108); POC Comment CPB; Sodium - POC 138 mmol/L (136-145); Specimen Type - POC Arterial; pH - POC 7.38 (7.35-7.45)
[2024-10-02 10:09] LABS: ACT+ - POC 609 Seconds (82-134)
[2024-10-02 10:23] LABS: Glucose - POC 135 mg/dl (70-99); HCO3 - POC 24 mmol/L (21-28); Hematocrit - POC 33 % PCV (42-52); Hemodilution- POC Yes; Hemoglobin Calculated - POC 11.3; Ionized Calcium - POC 1.11 mmol/L (1.15-1.33); O2 Saturation %Calculated-POC 99.8 % (94-98); PCO2 - POC 34 mmHg (35-48); PO2 - POC 235 mmHg (83-108); POC Comment CPB; Potassium - POC 4.3 mmol/L (3.5-5.1); Sodium - POC 138 mmol/L (136-145); Specimen Type - POC Arterial; pH - POC 7.45 (7.35-7.45)
[2024-10-02 10:32] LABS: ACT+ - POC 554 Seconds (82-134)
[2024-10-02 10:49] LABS: B.E. - POC -0.7 mmol/L; Glucose - POC 114 mg/dl (70-99); HCO3 - POC 22 mmol/L (21-28); Hematocrit - POC 34 % PCV (42-52); Hemodilution- POC Yes; Hemoglobin Calculated - POC 11.6; Ionized Calcium - POC 1.12 mmol/L (1.15-1.33); O2 Saturation %Calculated-POC 99.9 % (94-98); PCO2 - POC 31 mmHg (35-48); PO2 - POC 276 mmHg (83-108); POC Comment CPB; Potassium - POC 4.6 mmol/L (3.5-5.1); Sodium - POC 138 mmol/L (136-145); Specimen Type - POC Arterial; pH - POC 7.47 (7.35-7.45)
[2024-10-02 10:58] LABS: ACT+ - POC 536 Seconds (82-134)
[2024-10-02 11:14] LABS: ACT+ - POC 500 Seconds (82-134)
[2024-10-02 11:19] LABS: B.E. - POC -0.5 mmol/L; Glucose - POC 108 mg/dl (70-99); HCO3 - POC 24 mmol/L (21-28); Hematocrit - POC 33 % PCV (42-52); Hemodilution- POC Yes; Hemoglobin Calculated - POC 11.1; Ionized Calcium - POC 1.14 mmol/L (1.15-1.33); O2 Saturation %Calculated-POC 99.9 % (94-98); PCO2 - POC 40 mmHg (35-48); PO2 - POC 255 mmHg (83-108); POC Comment CPB; Potassium - POC 4.8 mmol/L (3.5-5.1); Sodium - POC 138 mmol/L (136-145); Specimen Type - POC Arterial; pH - POC 7.39 (7.35-7.45)
[2024-10-02 11:31] LABS: ACT+ - POC 622 Seconds (82-134)
[2024-10-02 11:45] LABS: ACT+ - POC 514 Seconds (82-134)
[2024-10-02 12:01] LABS: B.E. - POC -0.6 mmol/L; Glucose - POC 129 mg/dl (70-99); HCO3 - POC 24 mmol/L (21-28); Hematocrit - POC 35 % PCV (42-52); Hemodilution- POC Yes; Ionized Calcium - POC 1.16 mmol/L (1.15-1.33); O2 Saturation %Calculated-POC 99.9 % (94-98); PCO2 - POC 40 mmHg (35-48); PO2 - POC 300 mmHg (83-108); POC Comment WARM; Potassium - POC 5.1 mmol/L (3.5-5.1); Sodium - POC 140 mmol/L (136-145); Specimen Type - POC Arterial; pH - POC 7.39 (7.35-7.45)
[2024-10-02 12:08] LABS: ACT+ - POC 109 Seconds (82-134)
[2024-10-02 12:18] LABS: B.E. - POC -2.3 mmol/L; Glucose - POC 123 mg/dl (70-99); HCO3 - POC 22 mmol/L (21-28); Hematocrit - POC 30 % PCV (42-52); Hemodilution- POC Yes; Hemoglobin Calculated - POC 10.3; Ionized Calcium - POC 1.31 mmol/L (1.15-1.33); O2 Saturation %Calculated-POC 97.6 % (94-98); PCO2 - POC 36 mmHg (35-48); PO2 - POC 98 mmHg (83-108); Potassium - POC 4.3 mmol/L (3.5-5.1); Sodium - POC 141 mmol/L (136-145); Specimen Type - POC Arterial
--- NOTE | 2024-10-02 12:28 | W.CVOR.SURPR ---
CVOR Surgeon Immed Pre Op
-
I have examined this patient prior to performance of the scheduled procedure.
The patient's condition is unchanged from the time of the dictated/written History and
Physical and the patient is able to undergo the scheduled procedure.
--- NOTE | 2024-10-02 12:28 | W.IMMPOSTOP ---
Addendum entered and electronically signed by Ryan Ace MD 10/02/24 13:38:
[id number]
Original Note:
Surgical Immed Post Op Note
-
CARDIAC SURGERY OPERATIVE NOTE:
Preoperative Dx:
2V CAD including proximal LAD
Postoperative Dx:
Same
Procedures:
1) Median sternotomy
2) Takedown of REGINALD (narrow pedicle)
3) Endoscopic harvest/prep of RLE GSV
4) CABG x 4 (REGINALD to distal LAD, GSV to D2, GSV to D1, GSV to OM1)
Surgeon:
Ryan Ace M.D.
Assistants:
Gabriel Valera P.A.-C.; endoscopic harvest/prep of RLE GSV; industrial hire sales assistant throughout
Tequila Pineda P.A.-C.; [id number] sternotomy closure
Anesthesia:
Ken Kohli M.D. and Tamanna DíazN.A.
Perfusion:
Merly Dumont.CRamilaP.; XC: 81min, CPB: 131min
Findings:
REGINALD was healthy appearing conduit w/ very brisk blood flow; Its terminal bifurcation was slightly more cephalad than typical w/ the medial branch smaller than the lateral branch. ELD 2.25mm
GSV was healthy appearing conduit w/ ELD 3.25-3.5mm
LAD was not visible on the epicardial surface w/ exception of most apical segment. Vessel cleared proximally and distal 1/3 of vessel located under approximately 0.5cm of adipose and 2mm of myocardium. ELD at this location approximately 2.75mm w/
normal appearing solis. Several crossing veins were divided to allow for ideal exposure of LAD and epicardial adipose was cleared cephalad to LAD to allow for appropriate REGINALD-LAD interaction
D1 was visible on the epicardial surface, scattered calcifications, ELD 1.75mm
D2 was visible on the epicardial surface, scattered calcifications, ELD 2.00mm
OM1 was visible on the epicardial surface, but partially obscured by epicardial adipose, ELD 1.50mm
Good flow in all grafts on intraoperative transit-time U/S flow probe assessment
Post-OFELIA: LVEF 55% w/o RWMA, RV normal, trace MR
Implants:
CT x 4 (B/L pleural, inferior mediastinal, superior mediastinal)
Sternal wires x 7
Sternal 'X' plate w/ 8 - 14mm screws
Sternal 'Square' plate w/ 4 - 12mm screws
Transfusions:
None
Complications:
None
Condition:
67 sinus (0.3/0.1), 109/72, CVP 22, 99%
GTTS: precedex 0.5, insulin 1
Stable/guarded to CVICU
[2024-10-02 13:06] LABS: Glucose - Point of Care 115 mg/dl (70-99)
[2024-10-02 13:21] LABS: B.E. -1.8 mmol/L; HCO3 23.1 mmol/L (21-28); Ionized Calcium 1.26 mMOL/L (1.15-1.33); O2 Saturation % 98.1 % (94-98); PCO2 39 mmHg (35-48); PO2 98 mmHg (83-108); Potassium 4.5 mMOL/L (3.5-5.1); Sodium 139 mMOL/L (136-145); pH 7.38 (7.35-7.45)
[2024-10-02 13:29] LABS: INR 1.39; PT 17.4 Sec (11.4-14.6)
[2024-10-02 13:30] LABS: APTT 30.8 Sec (23.4-35.0)
[2024-10-02 13:40] LABS: Blood Urea Nitrogen 21 mg/dl (9-20); Estimated Creatinine Clearance 78 ml/min; Magnesium 3.1 mg/dl (1.6-2.3)
[2024-10-02 13:41] LABS: Hematocrit 35.2 % (39.0-52.0); Hemoglobin 12.5 g/dL (13.0-18.0); Platelet Count 104 10^3/uL (130-400)
[2024-10-02 13:48] LABS: Glucose 111 mg/dl (70-99)
--- NOTE | 2024-10-02 13:51 | W.PN.UPDATE ---
Update Note
Progress Note Update
59-year-old male admitted to with chest pressure, ruled out for FL. Cardiac cath reported two-vessel coronary disease. Patient taken for CABG 10/02/24
IV fluids: 1300
U.O.:�1450
UF:�800
Blood:�None
Wires:�None
Inotropes:�None
Pressors:�Levophed
Sedatives:�Precedex
�
NEURO: sedated on Precedex, pupils +2mm B/L
RESP: #8OT @23cm> 550/100%/14/5. Lungs clear B/L. 2 mediastinal (10cc on arrival) and R/L pleural (10cc on arrival) chest tubes to -20cm suction. Sanguineous drainage
CV: RRR +S1, S2, no S3, no�rub, no murmur. Aquacel dressing to median sternotomy. RIJ intact
ABD: round, soft, no BS
EXT: no edema, +2/4 DP pulses B/L, no femoral bruit, RLE JOCELYN wrap intact; left radial A-line intact
: Harris with clear yellow urine
�
A/P: POD #0 s/p CABG x 4 (REGINALD to distal LAD, GSV to D2, GSV to D1, GSV to OM1)
OFELIA: EF�55%
- wean and extubate
# CAD
- will require ASA, statin, Plavix, Beta-sammy
�
# acute surgical blood loss anemia/thrombocytopenia-expected
- trend Hb, platelet count
�
# T2DM (A1C 11.1)
- insulin infusion x 48h
-Diabetes SALESPERSON FLORIST SUPPLIES consulted for insulin management
- on Brenzavvy at home
�
[2024-10-02] MEDS: PACERONE PO ×2 (14:00→23:25)
--- NOTE | 2024-10-02 14:00 | PTCARENOTE ---
Pt received from CVOR 1310; Sedated and intubated; Pupils round, reactive, and equal; NS rhythm on monitor; VSS; DP and radial pulses present; Lungs diminished; ETT size 8 positioned and secured at 23 cm right lip; Ventilator settings SIMV 12/550/5
FiO2 100%; CTx3 to -20 cm wall suction draining bloody drainage - no air leak, tidaling, or crepitus noted; Hypoactive BS; Harris catheter in place draining yellow clear urine; Skin CDI/Groin puncture site CDI/Sternal Midline Incision CDI/ R Leg
wrapped in [place] wrap - CDI; no edema present ; A-line in left radial artery - line zeroed and level; [place] present in right Cordis; PIVx1; Cardene/insulin/precedex infusing; See nursing flowsheets for further details.
--- NOTE | 2024-10-02 14:08 | CON.INTV ---
Consultation
Consultation Request
Date/Time Consultation Requested: 10/02/2024-2 PM
Date/Time Consultation Performed: 10/02/2024-2 PM
Requesting Provider: Cardiovascular surgery
Performing Provider: Dr. Ferris
Reason for Consultation: Postoperative ventilator/critical care management
Medical History
-
Chief Complaint: CAD
History of Present Illness:
59-year-old male former smoker quit many years ago with a history of diabetes found to have significant CAD and underwent CABG x 4-ecommerce project manager consulted for postoperative ventilator/critical care management 10/02/2024. Patient is intubated and
review of systems was unobtainable. Patient is on some norepinephrine. Oxygenation is marginal on 100% and 5 of PEEP. Operative records were reviewed. Reviewed with physicians certified physician's assistant.
Past Medical History
Past Medical History: None (Diabetes.)
Social History
Tobacco: Former Smoker
Alcohol: Occasional
Drug: None
Personal:
Living: With Family
Occupational Exposures: No known asbestos exposure
Environmental Exposures: No known tuberculosis exposure
Family History
Family History: Other ( CAD)
Allergies / Home Medications
Allergies
Allergy/AdvReac Type Severity Reaction Status Date / Time
No Known Allergies Allergy Verified 09/28/24 18:36
Home Medications
�Medication �Instructions �Recorded �Confirmed �Last Taken �Type
bexagliflozin 20 mg tablet 20 mg PO DAILY Diabetes 09/28/24 09/28/24 Unknown History
(Dennis)
Review of Systems
-
Unable to Obtain full review of systems at this time due to: Patient Intubation
Vitals / Labs / Diagnostic Testing
Vital Signs
Temp Pulse Resp BP Pulse Ox
96.2 F L 72 0 94/70 89
10/02/24 13:15 10/02/24 13:11 10/02/24 13:11 10/02/24 13:11 10/02/24 13:11
Lab Data
10/02/24 13:03
Laboratory Results
10/01/24 10/02/24 10/02/24
17:18 05:40 13:03
PT 17.4 H
INR 1.39
APTT 100.8 H 98.0 H 30.8
pH
pCO2
pO2
HCO3
O2 Delivery Level
10/02/24
13:04
PT
INR
APTT
pH 7.38
pCO2 39
pO2 98
HCO3 23.1
O2 Delivery Level
Diagnostic Testing:
Physical Exam
-
Exam:
Well-nourished and well-developed in no apparent distress
HEENT-atraumatic, normocephalic, oral tracheal intubation
Heart-regular rate and rhythm-no murmurs, rubs or gallops
Chest-clear to auscultation, no wheezes, crackles, median sternotomy bandage is not removed
Abdomen soft nondistended
Extremities-no cyanosis, clubbing, edema and good peripheral pulses
Integument-intact, no rashes, lesions or ecchymosis
Neurologically not alert, not oriented, not moving any of his extremities sedated on a ventilator
Assessment
-
59-year-old male former smoker quit many years ago with a history of diabetes found to have significant CAD and underwent CABG x 4-ecommerce project manager consulted for postoperative ventilator/critical care management 10/02/2024.
Coronary artery disease
Status post CABG x 4-Melvina-LAD, GSV-D2, GSV-D1, GSV-OM1-Dr. Ace 10/02/2024
Mild anemia
Mild thrombocytopenia
Hyperglycemia-A1c 11.1%
Conditions present prior to admission:
Diabetes
Plan
Ventilator settings reviewed
FiO2 will be weaned
Minute ventilation will be adjusted
Arterial blood gases will be monitored
Spontaneous breathing trial will be attempted with hopeful extubation after anesthesia/sedation wear off
Pulmonary artery catheter parameters will be followed
Pressors/antihypertensive/inotropes/diuretics will be provided as needed
Monitor chest tube output
Monitor hemoglobin
Monitor platelet count and coags
Transfuse blood product if needed
CT surgery following chest tubes
Monitor blood sugar
A1c 11.1%
Insulin drip per protocol
Aspiration precautions
VAP prevention protocol
DVT prophylaxis
Early nutrition
Early mobilization
Critical care statement: A total of 50 minutes of critical care time was provided for this patient today. This includes management of ventilator, spontaneous breathing trial, arterial blood gases, pressors, of unstable vital signs, evaluation of the
patient at bedside, reviewing the patient's pertinent medical records including radiographs, microbiology, laboratory evaluations, and discussion with primary team and critical care nursing.
Diagnostic data:
Chest x-ray 09/28/2024-NAD
CT chest 03/16/2013-bilateral lower lobe infiltrates with air bronchograms likely representing atelectasis
CT chest 09/29/2024-no acute disease in the chest, minimally calcified atherosclerotic disease, mild bibasilar lingular and right middle lobe atelectasis versus scarring
Echocardiogram 09/28/2024-EF 50%, normal diastolic function, mild mitral regurgitation
Cardiac catheterization 09/28/2024-proximal LAD has a tubular 95% stenosis, mid LAD has eccentric 70% stenosis, distal to apical LAD has 70% stenosis, OM1 is small to medium caliber with 70% stenosis, elevated LVEDP at 20
Data Reviewed
-
EKG: Report reviewed by me
Radiology: Image personally visualized and interpreted and Report reviewed by me
CT Scan: Report reviewed by me
Medical Tests (Nuc Med, Echo etc): Report reviewed by me
Labs: Labs reviewed by me
Critical Care Time (in minutes): 50
--- NOTE | 2024-10-02 14:22 | CM ---
pt in OR today, cm follwoing
[2024-10-02 14:35] LABS: Glucose - Point of Care 99 mg/dl (70-99)
[2024-10-02 15:40] LABS: Glucose - Point of Care 115 mg/dl (70-99)
--- NOTE | 2024-10-02 15:57 | W.PN.CARDCBS ---
Addendum entered and electronically signed by Jm Justice MD 10/02/24 16:29:
I saw and examined the patient.
The PLASTIC TOP ASSEMBLER or PA's note was reviewed and I agree with the note.
Comment: Sedate and intubated
Neck: Supple, no JVD, HJR, carotids +2 B/L, no bruits bilaterally.
Heart: Non displaced PMI, RRR, no murmurs, No S3, S4, no rubs.
Lungs: Scattered rhonchi
Sternal dressings noted
Extremities: No clubbing, cyanosis or edema bilaterally.
Neuro: Sedate
He is seen immediately postop status post CABG x 4. Remains in sinus rhythm. Is on low-dose Levophed. Continue supportive care. Discussed with CT nursing.
Original Note:
Today's Communication / Plan
-
-postop CABG x 4
-cont supportive postop care
Impression / Plan
-
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
Assessment:
Presentation with , [facility]
Negative trop x1
MV CAD by cath 09/28 - LAD/diag
s/p CABG x 4 (REGINALD to distal LAD, GSV to D2, GSV to D1, GSV to OM1), 10/02/2024
Poorly controlled DM2
HTN
Hypertriglyceridemia
Remote former smoker
Family history of CAD
ECHO 09/28/24: EF 58%, no regional wall motion abnormalities noted, mild MR
Cardiac cath 09/28/2024: LM: Minimal luminal irregularities. LAD: Proximal LAD 90 to 95% stenosis, ostial to proximal D1 80% stenosis, mid LAD 60 to 70% stenosis, distal to apical LAD with 2 serial 70% stenoses. Circumflex: OM1 with 70% ostial
stenosis, OM 280 to 85% stenosis mid. RCA small vessel with minimal luminal irregularities
Plan:
-Status post CABG x 4, postop day 0
-No blood products intraop
-On Levophed 2 mcg/min
-EKG: Normal sinus rhythm with first-degree AV block, [place] 338 ms
-telem: personally reviewed: NSR, occ pacs
-wean vent and extubate
-pain mgmt postop
-restart ASA, Plavix, Toprol, statin
-Diabetes poorly controlled, hemoglobin A1c 11%, will need strict control moving forward. Appreciate diabetic education/PLASTIC TOP ASSEMBLER
-LDL 93. Triglycerides 404. Started on statin therapy
-cardiac rehab after discharge
Progress Note - Warehouse General Laborer
Subjective
Date of Service: October 02, 2024
s/p CABG x 4
awaiting extubation
in NSR
Objective
Labs:
10/02/24 13:03
Labs
Hgb 12.5 g/dL (13.0-18.0) L 10/02/24 13:03
Hct 35.2 % (39.0-52.0) L 10/02/24 13:03
Plt Count 104 10^3/uL (130-400) L D 10/02/24 13:03
PT 17.4 Sec (11.4-14.6) H 10/02/24 13:03
INR 1.39 10/02/24 13:03
APTT 30.8 Sec (23.4-35.0) 10/02/24 13:03
Sodium 135 mmol/L (135-145) 09/29/24 02:18
Potassium 4.0 mmol/L (3.5-5.1) 09/29/24 02:18
BUN 21 mg/dl (9-20) H 10/02/24 13:03
Creatinine 1.0 mg/dL (0.7-1.3) 10/02/24 13:03
Glucose 111 mg/dl (70-99) H 10/02/24 13:03
Vital Signs and I&O:
Vital Signs
Temp Pulse Resp BP Pulse Ox
96.8 F L 76 11 105/77 96
10/02/24 15:00 10/02/24 15:00 10/02/24 15:00 10/02/24 15:00 10/02/24 15:00
Vital Signs
Temp Pulse Resp BP Pulse Ox
96.8 F L 76 11 105/77 96
10/02/24 15:00 10/02/24 15:00 10/02/24 15:00 10/02/24 15:00 10/02/24 15:00
Intake & Output
09/30/24 10/01/24 10/02/24 10/03/24
06:59 06:59 06:59 06:59
Intake Total 450 / 450 1347.6 / 1347.6 429.6 / 429.6 0 / 0
Output Total 1280 / 1280
Balance 450 / 450 1347.6 / 1347.6 429.6 / 429.6 -1280 / -1280
Physical Exam
Physical Exam
GEN: No distress, intubated and sedated
HEENT: supple, anicteric, mmm
LUNGS: CTA, no wheezes/rales
CV: Reg, S1/S2, no rub, no murmur
ABD: soft, BS+, NT/ND
EXT: No edema
NEURO: Gross non-focal
SKIN: sternal incision with dressing
[2024-10-02 16:03] LABS: HCO3 23.7 mmol/L (21-28); O2 Saturation % 95.9 % (94-98); PCO2 43 mmHg (35-48); PO2 77 mmHg (83-108); pH 7.35 (7.35-7.45)
--- NOTE | 2024-10-02 16:20 | RESPNOTE ---
patient extubated at this time without difficulty. 97% on 6L.
[2024-10-02] MEDS: DILAUDID 0.5 MG IV (16:27)
[2024-10-02] MEDS: ANCEF 5 IV ×2 (16:31→23:21)
[2024-10-02 16:36] LABS: Glucose - Point of Care 105 mg/dl (70-99)
[2024-10-02] MEDS: LR 250 ML IV ×2 (18:00→18:20)
--- NOTE | 2024-10-02 18:00 | PTCARENOTE ---
PT extubated @ 1620 PT stated Name and AAOx
[2024-10-02] MEDS: LR 500 IV (18:10)
[2024-10-02 18:16] LABS: Glucose - Point of Care 78 mg/dl (70-99)
[2024-10-02 19:03] LABS: Hematocrit 33.3 % (39.0-52.0); Hemoglobin 11.6 g/dL (13.0-18.0); Platelet Count 191 10^3/uL (130-400)
[2024-10-02] MEDS: LOW STRENGTH ASPIRIN 81 MG PO (19:25)
[2024-10-02 19:31] LABS: Glucose - Point of Care 99 mg/dl (70-99)
[2024-10-02] MEDS: SODIUM BICARBONATE 50 MEQ IV (19:59)
[2024-10-02] MEDS: TYLENOL PO (20:01)
[2024-10-02] MEDS: CRESTOR PO (20:01)
[2024-10-02] MEDS: SENOKOT-S PO (20:01)
[2024-10-02] MEDS: NSS 500 IV (20:03)
[2024-10-02] MEDS: NEURONTIN PO ×2 (20:03)
[2024-10-02] MEDS: NOVOLOG FLEXPEN SC ×2 (20:03)
[2024-10-02] MEDS: CALCIUM GLUCONATE 100 IV (20:27)
[2024-10-02 21:07] LABS: Glucose - Point of Care 105 mg/dl (70-99)
[2024-10-02 22:21] LABS: Glucose - Point of Care 96 mg/dl (70-99)
--- NOTE | 2024-10-02 23:30 | PTCARENOTE ---
Patient received @ 2300 from RN. Patient sleeping in bed w/ call scott in reach. AOx4, NSR HR 77 BP 94/71. Radial and pedal pulses present bilaterally. POX 93% 6L NC. Lungs clear anteriorly bilaterally, IS 750, 4 chest tubes 2x mediastinal and
1L & 1R pleural. Suction set to -20cm, no tidaling or crepitus. Hypoactive bowel sounds w/ intermittent nausea. Harris draining clear yellow urine WNL. Sternal incision dressing dry and intact w/ scant old drainage noted. R groin puncture well
approximated. Ecchymosis noted around groin puncture soft and non-tender. Right leg serenity wrap dry and intact. On Levo and insulin, see Worklist for details. Left A-line cleared and zeroed. RIJ cordis and slick patent and intact. Left PIV patent
and intact.
[2024-10-03] VITALS (30 sets, daily range): BP systolic 94–134; BP diastolic 47–73; PULSE 74–80; O2SAT 96; BMI 30.5
[2024-10-03 00:10] LABS: Glucose - Point of Care 91 mg/dl (70-99)
[2024-10-03] MEDS: NEURONTIN 100 MG PO ×4 (00:10→20:09)
[2024-10-03] MEDS: TYLENOL 1000 MG PO ×4 (00:11→20:09)
[2024-10-03] MEDS: LR 250 ML IV (00:13)
--- NOTE | 2024-10-03 00:53 | W.PN.CT ---
Today's Communication / Plan
-
Plan:
-No major issues overnight. Hemodynamically and neurologically intact
-Successfully extubated last night @ 1620
-Weaned off Levophed gtt this AM @ 0500, remains on insulin gtt per protocol. Will hold AM dose of BB given soft BP postop
-No swan, u/o since OR 2140 mL
-Monitor chest tube output: 2meds 185/300, R/L pleurals 175/310
-Cont. current meds (ASA, Plavix, Lopressor-will hold AM dose, Amiodarone, Crestor)
-D/C'd A-line and SLIC @ 0600
-Will D/C'd stacy @ 0600
-Telemetry phase tomorrow when off insulin gtt, diabetes education/management following
-No temporary PW
-Encourage use of IS
-Wean off O2 as tolerated
-OOB into chair/Ambulate
Assessment / Plan
-
Assessment:
-S/P Median sternotomy/CABG x 4 (REGINALD to distal LAD, GSV to D2, GSV to D1, GSV to OM1)/Endoscopic harvest/prep of RLE GSV, by Dr. Ace, 10/02/24, pod#1
-Severe 2V CAD involving LAD and Left circumflex
-USA
-LVEF 55% per intraop OFELIA
-HTN
-HLD
-T2DM (hgb A1C 11.1)
-Class 1 obesity (BMI 30)
-Former tobacco use (quit 40 yrs ago)
-S/P inguinal hernia repair
-S/P Lower teeth implants
-S/P L forearm tendon repair
-Acute postop blood loss/Anemia (stable without transfusion)
-Acute postop thrombocytopenia (Stable without active bleed)
-Acute postop atelectasis/pleural effusion
-Acute postop hypoxemia
-Acute postop hypovolemia with subsequent hypervolemia
Discussed patient care with: Cardiology, Nursing, Respiratory Therapy, Pharmacy and Care Team
Subjective
Procedure
Median sternotomy/CABG x 4 (REGINALD to distal LAD, GSV to D2, GSV to D1, GSV to OM1)/Endoscopic harvest/prep of RLE GSV, by Dr. Ace, 10/02/24
-
Date of Service: October 03, 2024
Pt c/o pleuritic chest pain, otherwise feels well
Objective Data
-
PT 17.4 Sec (11.4-14.6) H 10/02/24 13:03
INR 1.39 10/02/24 13:03
APTT 30.8 Sec (23.4-35.0) 10/02/24 13:03
Vital Signs
Vital Signs
Temp Pulse Resp BP Pulse Ox
99.5 F 76 22 100/72 93
10/03/24 00:00 10/03/24 00:15 10/03/24 00:15 10/03/24 00:00 10/03/24 00:15
CT Intake/Output/Weight
10/02/24 10/02/24 10/03/24
06:59 18:59 06:59
Intake Total 151.8 / 429.6 0 / 313.5 313.5 / 313.5
Output Total 1675 / 2310 635 / 2310
Balance 151.8 / 429.6 -1675 / -1996.5 -321.5 / -1996.5
SaO2: 93 (6L)
Physical Exam
-
General: Awake, Oriented and AOx3
Cardiovascular: Regular rate & rhythm, No Murmurs, Rub and No Gallop
Respiratory: Decreased Breath Sounds
Sternum: Stable
Incision: Clean, Dry, Intact and Dressing Intact
Extremities: Other (+trace edema)
Data Reviewed
-
Lab Results: Results Reviewed
Medications: Active Meds Reviewed
Chest X-Ray: Report Reviewed and Image Reviewed
ECG: Report Reviewed and Image Reviewed
[2024-10-03] MEDS: NORVASC PO (01:37)
[2024-10-03] MEDS: LOW STRENGTH ASPIRIN PO (01:37)
[2024-10-03] MEDS: TOPROL XL PO (01:37)
[2024-10-03] MEDS: NOVOLOG FLEXPEN SC ×2 (01:37)
[2024-10-03] MEDS: NOVOLOG FLEXPEN-MODERATE RESISTANCE SC ×2 (01:37)
[2024-10-03 02:01] LABS: Glucose - Point of Care 81 mg/dl (70-99)
[2024-10-03 03:44] LABS: Hematocrit 31.7 % (39.0-52.0); Hemoglobin 10.9 g/dL (13.0-18.0); Mean Corp Hgb Conc. 34.4 g/dL (33.0-37.0); Mean Corpuscular Hgb 29.9 pg (27.0-31.0); Mean Corpuscular Volume 87.1 fL (80.0-94.0); Mean Platelet Volume 10.4 fL (7.4-10.4); Platelet Count 159 10^3/uL (130-400); Red Blood Cell Count 3.64 10^6/uL (4.70-6.10); Red Cell Dist. Width 13.1 % (11.5-14.5); White Blood Cell Count 12.2 10^3/uL (4.8-10.8)
[2024-10-03] MEDS: LEVOPHED 250 IV (03:48)
[2024-10-03 04:00] LABS: Glucose - Point of Care 80 mg/dl (70-99)
--- NOTE | 2024-10-03 04:00 | PTCARENOTE ---
Patient reassessed. NSR w/ first degree heart block. HR 73 BP 109/71 POX 92% 6L NC. Chest tubes draining WNL. Harris draining clear yellow urine WNL. Insulin and Levo titrating per protocol, see worklist for details. CHG bath completed and gown
changed. 250 LR bolus given per CT PA Ed.
[2024-10-03 04:07] LABS: Blood Urea Nitrogen 26 mg/dl (9-20); Calcium 8.3 mg/dl (8.4-10.2); Carbon Dioxide 22 mmol/L (22-30); Chloride 108 mmol/L (98-107); Estimated Creatinine Clearance 60 ml/min; Glucose 86 mg/dl (70-99); Magnesium 2.1 mg/dl (1.6-2.3); Potassium 4.4 mmol/L (3.5-5.1); Sodium 138 mmol/L (135-145); eGFR > 60.00
[2024-10-03 05:02] LABS: B.E. -3.2 mmol/L; HCO3 21.2 mmol/L (21-28); Ionized Calcium 1.13 mMOL/L (1.15-1.33); O2 Saturation % 97.7 % (94-98); PCO2 35 mmHg (35-48); PO2 82 mmHg (83-108); pH 7.39 (7.35-7.45)
[2024-10-03] MEDS: SODIUM BICARBONATE 50 MEQ IV (05:02)
[2024-10-03] MEDS: ANCEF 5 IV (05:10)
[2024-10-03] MEDS: CALCIUM GLUCONATE 130 MG IV (05:30)
--- NOTE | 2024-10-03 05:41 | PTCARENOTE ---
50meq sodium bicarb and 3g calcium gluconate given per CT PA Ed. Levo off.
[2024-10-03 06:22] LABS: Glucose - Point of Care 81 mg/dl (70-99)
--- NOTE | 2024-10-03 06:30 | PTCARENOTE ---
Srikanth Lopez, and Steven D/C per CT PA Ed. Steven removed at 0620. Flexeril given see MAR for details.
[2024-10-03] MEDS: FLEXERIL 5 MG PO (06:40)
--- NOTE | 2024-10-03 07:36 | W.PN.INTV ---
Today's Communication / Plan
Recommendations
Continue insulin drip
Begin to deline
Monitor chest tube output
Tolerated extubation, wean FiO2
Incentive spirometry
Assessment
-
59-year-old male former smoker quit many years ago with a history of diabetes found to have significant CAD and underwent CABG x 4-regulatory scientist consulted for postoperative ventilator/critical care management 10/02/2024.
Coronary artery disease
Status post CABG x 4-Melvina-LAD, GSV-D2, GSV-D1, GSV-OM1-Dr. Ace 10/02/2024
Mild anemia
Mild thrombocytopenia
Hyperglycemia-A1c 11.1%
Conditions present prior to admission:
Diabetes
Plan
Tolerated extubation
Wean FiO2
Encourage incentive spirometry
Increase activity
Aspiration precautions
Pulmonary artery catheter and arterial line will be removed
Pressors have been weaned
Continue to monitor chest tube output
Follow hemoglobin
Continue to follow platelet count and coags
Transfuse blood product as needed
CT surgery following chest tubes as well
Follow blood sugar
Insulin supplementation continues as needed-still on drip for another 24 hours
A1c 11.1%
Early nutrition
Early mobilization
DVT prophylaxis
Patient will be transferred to telemetry phase-call pulmonary if respiratory issues arise
Critical care statement: A total of 35 minutes of critical care time was provided for this patient today. This includes management of ventilator, spontaneous breathing trial, arterial blood gases, pressors, of unstable vital signs, evaluation of the
patient at bedside, management of insulin drip, reviewing the patient's pertinent medical records including radiographs, microbiology, laboratory evaluations, and discussion with primary team and critical care nursing.
Diagnostic data:
Chest x-ray 09/28/2024-NAD
CT chest 03/16/2013-bilateral lower lobe infiltrates with air bronchograms likely representing atelectasis
CT chest 09/29/2024-no acute disease in the chest, minimally calcified atherosclerotic disease, mild bibasilar lingular and right middle lobe atelectasis versus scarring
Echocardiogram 09/28/2024-EF 50%, normal diastolic function, mild mitral regurgitation
Cardiac catheterization 09/28/2024-proximal LAD has a tubular 95% stenosis, mid LAD has eccentric 70% stenosis, distal to apical LAD has 70% stenosis, OM1 is small to medium caliber with 70% stenosis, elevated LVEDP at 20
Subjective Dataa
Subjective Data
Date of Service:
Date of Service: October 03, 2024
Chief Complaint: Player Development Executive Follow Up, Pulmonary Follow Up and Vent Management Follow Up
Subjective:
Tolerated extubation, no complaints of shortness of breath, chest congestion, pain controlled, no abdominal pain
Review of Systems
General: Other (Per HPI)
Objective Data
Data Reviewed
Vital Signs / I&O / Oxygen:
Vital Signs
Temp Pulse Resp BP Pulse Ox
99.1 F 69 17 111/68 93
10/03/24 06:00 10/03/24 07:20 10/03/24 07:00 10/03/24 06:00 10/03/24 07:22
Intake and Output
10/02/24 10/03/24 10/04/24
06:59 06:59 06:59
Intake Total 429.6 / 429.6 483.9 / 494.9
Output Total 2750 / 2800 50 / 50
Balance 429.6 / 429.6 -2266.1 / -2305.1 -39 / -39
SaO2 93
Nasal Cannula flow liters per 6
minute
Physical Exam
General: Respiratory Distress (n) and Comfortable
HEENT: Normocephalic, Anicteric and Moist Mucous Membranes
Cardiovascular: Regular Rhythm
Respiratory: Wheeze (n), Crackles (n), Rhonchi (n), Non-Labored Respirations and Accessory Resp Muscle Use (n)
GI: Soft, Non Distended and Non Tender
Neurology: Awake, Alert and No Motor Deficits
Skin: Warm, Good Color, Cyanosis, Jaundice (n) and Rash (n)
Labs/Micro/Reports
Lab Data
10/03/24 03:13
10/03/24 03:13
Laboratory Results
10/02/24 10/02/24 10/02/24
13:03 13:04 15:55
PT 17.4 H
INR 1.39
APTT 30.8
pH 7.38 7.35
pCO2 39 43
pO2 98 77 L
HCO3 23.1 23.7
O2 Delivery Level
10/03/24
04:53
PT
INR
APTT
pH 7.39
pCO2 35
pO2 82 L
HCO3 21.2
O2 Delivery Level
[2024-10-03 08:01] LABS: Glucose - Point of Care 95 mg/dl (70-99)
--- NOTE | 2024-10-03 08:01 | W.PN.ANS.POP ---
Anesthesia Post Operative
- Anesthesia Post Op Note
Vital Signs Stable-See Nursing Note: Yes (Pt oob to chair- denies c/o)
Airway Patent: Yes
Adequate Pain Control: Yes
Change in Mental Status: No
Current Postoperative Nausea & Vomiting: No
Anesthesia Complications: No
General Anesthetic Recall: No
Unplanned Admission: No
Post Op Hydration Adequate: Yes
[2024-10-03] MEDS: BACTROBAN 2% OINTMENT 1 APPLIC NASAL ×2 (08:21→20:09)
[2024-10-03] MEDS: NOVOLOG FLEXPEN 2 UNITS SC ×2 (08:21→14:03)
[2024-10-03] MEDS: LOW STRENGTH ASPIRIN 81 MG PO (08:22)
[2024-10-03] MEDS: LASIX 40 MG IV (08:22)
[2024-10-03] MEDS: PROTONIX 40 MG PO (08:22)
[2024-10-03] MEDS: MAGNESIUM OXIDE 500 MG PO ×2 (08:22→20:09)
[2024-10-03] MEDS: LIDOCAINE 4% PATCH 1 PATCH TOPICAL (08:22)
[2024-10-03] MEDS: PLAVIX 75 MG PO (08:22)
[2024-10-03] MEDS: SENOKOT-S 1 TABLET PO ×2 (08:23→20:09)
[2024-10-03] MEDS: PACERONE 200 MG PO (08:23)
--- NOTE | 2024-10-03 09:19 | PN.DE.MGMTRT ---
Insulin Management
- -
10/03/2024: Diabetes Management follow up.
Patient admitted 09/28 with recurrent episodes of exertional substernal chest tightness associated with SOB x's 3 episodes. PMH: HTN, Obesity, h/o Smoking and T2DM. S/P Cardiac Cath 09/28. Prior to admission was taking no medications for diabetes,
stopped in 07/16 due to loss of insurance. A1C on admission 11.1%.
Pt is awake alert and oriented able to discuss diabetes management.
Currently on glycemic protocol requiring .2 to .8 units of insulin per hour. Will continue glycemic protocol today and assess for readiness to transition 10/04/2023
Discussed with nurse.
Pt has CGM in place- Kamila 2 and is already familiar with insulin pen use.
Diabetes History
- -
Type of Diabetes: 2
Pre-Admission Diabetes Regimen
10/02/24 10/03/24
13:03 03:13
Creatinine 1.0 1.3
Lab Results
Hemoglobin A1c 11.1 % (4.0-5.6) H 09/28/24 09:11
Insulin Pump Settings
IP Diabetes Regimen
10/02/24 10/02/24 10/02/24
13:03 13:04 14:34
Glucose 111 H
POC Glucose 115 H 99
10/02/24 10/02/24 10/02/24
15:39 16:34 18:15
Glucose
POC Glucose 115 H 105 H 78
10/02/24 10/02/24 10/02/24
19:30 21:06 22:20
Glucose
POC Glucose 99 105 H 96
10/03/24 10/03/24 10/03/24
00:08 01:59 03:13
Glucose 86
POC Glucose 91 81
10/03/24 10/03/24 10/03/24
03:58 06:20 07:59
Glucose
POC Glucose 80 81 95
Meal type: Dinner
Patient Education
--- NOTE | 2024-10-03 09:38 | W.PN.CARDCBS ---
Addendum entered and electronically signed by Jm Justice MD 10/03/24 12:03:
Hold amiodarone with heart block noted on telemetry. There may be an element of sleep apnea to explain heart block as well. Continue to hold beta-sammy.
Addendum entered and electronically signed by Jm Justice MD 10/03/24 09:56:
I saw and examined the patient.
The DESIGN LEAD or PA's note was reviewed and I agree with the note.
Comment: General: Well developed, well nourished in NAD.
Neck: Supple, no JVD, HJR, carotids +2 B/L, no bruits bilaterally.
Heart: Non displaced PMI, RRR, no murmurs, No S3, S4, no rubs.
Lungs: Scattered rhonchi
Sternal dressings noted
Extremities: No clubbing, cyanosis or edema bilaterally.
Neuro: Grossly nonfocal, awake, alert and oriented x3.
Remains stable status post CABG. Beta-sammy on hold. Remains in sinus rhythm. Chest tubes in place.
Original Note:
Today's Communication / Plan
-
continue post op care
follow rhythm. holding BB, consider holding amio as well
Impression / Plan
-
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
Assessment:
Presentation with , [place]
Negative trop x1
MV CAD by cath 09/28 - LAD/diag
s/p CABG x 4 (REGINALD to distal LAD, GSV to D2, GSV to D1, GSV to OM1), 10/02/2024
Poorly controlled DM2
HTN
Hypertriglyceridemia
Remote former smoker
Family history of CAD
ECHO 09/28/24: EF 58%, no regional wall motion abnormalities noted, mild MR
Cardiac cath 09/28/2024: LM: Minimal luminal irregularities. LAD: Proximal LAD 90 to 95% stenosis, ostial to proximal D1 80% stenosis, mid LAD 60 to 70% stenosis, distal to apical LAD with 2 serial 70% stenoses. Circumflex: OM1 with 70% ostial
stenosis, OM 280 to 85% stenosis mid. RCA small vessel with minimal luminal irregularities
Plan:
-Status post CABG x 4 REGINALD to distal LAD, GSV to D2, GSV to D1, GSV to OM1 10/02/24
-doing well. off pressors
-in SR with occasional brief av block. holding BB, did receive amio this AM. will continue to follow on tele
-continue asa, plavix. hgb 10.9
-continue post op care
-Diabetes poorly controlled, hemoglobin A1c 11%, will need strict control moving forward. Appreciate diabetic education/DESIGN LEAD
-LDL 93. Triglycerides 404. Started on statin therapy
-cardiac rehab after discharge
-d/w nursing
Progress Note - Earth Moving Machine Operator
Subjective
Date of Service: October 03, 2024
reports some discomfort at site of chest tubes
Objective
Labs:
10/03/24 03:13
10/03/24 03:13
Labs
Hgb 10.9 g/dL (13.0-18.0) L 10/03/24 03:13
Hct 31.7 % (39.0-52.0) L 10/03/24 03:13
Plt Count 159 10^3/uL (130-400) 10/03/24 03:13
PT 17.4 Sec (11.4-14.6) H 10/02/24 13:03
INR 1.39 10/02/24 13:03
APTT 30.8 Sec (23.4-35.0) 10/02/24 13:03
Sodium 138 mmol/L (135-145) 10/03/24 03:13
Potassium 4.4 mmol/L (3.5-5.1) 10/03/24 03:13
BUN 26 mg/dl (9-20) H 10/03/24 03:13
Creatinine 1.3 mg/dL (0.7-1.3) 10/03/24 03:13
Glucose 86 mg/dl (70-99) 10/03/24 03:13
Vital Signs and I&O:
Vital Signs
Temp Pulse Resp BP Pulse Ox
98.5 F 73 17 107/66 91
10/03/24 08:00 10/03/24 09:35 10/03/24 07:00 10/03/24 09:00 10/03/24 09:15
Vital Signs
Temp Pulse Resp BP Pulse Ox
98.5 F 73 17 107/66 91
10/03/24 08:00 10/03/24 09:35 10/03/24 07:00 10/03/24 09:00 10/03/24 09:15
Intake & Output
10/01/24 10/02/24 10/03/24 10/04/24
07:59 07:59 07:59 07:59
Intake Total 1347.6 / 1347.6 429.6 / 429.6 494.9 / 505.9
Output Total 2800 / 2840 40 / 40
Balance 1347.6 / 1347.6 429.6 / 429.6 -2305.1 / -2334.1 -29 / -29
Physical Exam
Physical Exam
GEN: No distress, awake, alert, oriented x3. sitting in chair. on supp O2
HEENT: supple, anicteric, mmm, eomi
LUNGS: CTA B/L, no wheezes
CV: Reg, S1/S2, no murmur
ABD: soft, BS+, NT/ND
EXT: No cyanosis, clubbing, edema
NEURO: Gross non-focal
SKIN: Warm, pink, dry. No rash. Sternotomy dressing c/d/i
[2024-10-03 10:03] LABS: Glucose - Point of Care 139 mg/dl (70-99)
--- NOTE | 2024-10-03 10:16 | PTCARENOTE ---
Patient received from stonecutter assistant resting oob in chair, AAO X 3, states pain controlled at this time. NSR w/1st degree AV block noted via cm, SaO2 @ 94% on 6lnc - titrating as able. RIJ Cordis w/kvo infusing. Insulin infusing peripherally, titrating
per glycemic protocol. Mediastinal chest tubes x 2 (Y-connected), L and R pleural chest tubes (Y-connected to separate pleurevac), both chambers to -20cm suction w/no air leaks noted. Harris d/c'd this am, patient voided spontaneously to urinal,
clear yellow. All procedural sites stable. Patient updated to plan of care for the day, in agreement. See work list for full assessment and interventions performed.
[2024-10-03] MEDS: NSS IV (10:37)
[2024-10-03] MEDS: ROXICODONE 2.5 MG PO ×3 (11:01→21:10)
[2024-10-03 12:01] LABS: Glucose - Point of Care 132 mg/dl (70-99)
--- NOTE | 2024-10-03 12:06 | PTCARENOTE ---
VS obtained, assessment stable. Patient resting comfortably oob in chair, dozing intermittently. at bedside.
[2024-10-03] MEDS: NOVOLIN R INSULIN INFUSION 100 IV (14:04)
[2024-10-03 14:09] LABS: Glucose - Point of Care 132 mg/dl (70-99)
[2024-10-03 16:00] LABS: Glucose - Point of Care 282 mg/dl (70-99)
[2024-10-03 17:02] LABS: Glucose - Point of Care 315 mg/dl (70-99)
[2024-10-03] MEDS: CRESTOR 40 MG PO (17:58)
[2024-10-03 18:01] LABS: Glucose - Point of Care 251 mg/dl (70-99)
[2024-10-03] MEDS: NOVOLOG FLEXPEN 4 UNITS SC (18:02)
[2024-10-03 19:07] LABS: Glucose - Point of Care 192 mg/dl (70-99)
--- NOTE | 2024-10-03 20:00 | PTCARENOTE ---
assumed care of pt from previous RN. pt A&Ox4, resting in bed at time of assessment. SR on tele-monitor. POX 89-90% on 4 L NC. IS encouraged. ~1000ml achieved on IS. CTx4 (mediastinal x2, R & L pleural) to -20cm wall suction. abd s/n, +BS. no c/o
nausea. voiding in urinal. all surgical sites stable, CDI. R groing puncture site w/ ecchymosis, soft, non-tender. R IJ cordis w/ KVO. PIV intact. glycemic protocol followed. see worklist for complete nursing assessment, interventions, VS, and I&Os.
[2024-10-03 20:01] LABS: Glucose - Point of Care 195 mg/dl (70-99)
[2024-10-03 21:14] LABS: Glucose - Point of Care 193 mg/dl (70-99)
[2024-10-03 22:07] LABS: Glucose - Point of Care 137 mg/dl (70-99)
[2024-10-03 23:09] LABS: Glucose - Point of Care 100 mg/dl (70-99)
[2024-10-04] VITALS (20 sets, daily range): BP systolic 96–128; BP diastolic 61–75; O2SAT 98; BMI 30.5
--- NOTE | 2024-10-04 | PTCARENOTE ---
assessment remains unchanged. VSS. no c/o pain at this time.
[2024-10-04 00:13] LABS: Glucose - Point of Care 87 mg/dl (70-99)
[2024-10-04] MEDS: ROXICODONE 2.5 MG PO (01:03)
[2024-10-04 01:08] LABS: Glucose - Point of Care 97 mg/dl (70-99)
[2024-10-04] MEDS: MUCINEX 600 MG PO ×3 (01:26→21:21)
[2024-10-04 03:09] LABS: Glucose - Point of Care 115 mg/dl (70-99)
[2024-10-04 03:33] LABS: Hematocrit 27.8 % (39.0-52.0); Hemoglobin 9.5 g/dL (13.0-18.0); Mean Corp Hgb Conc. 34.2 g/dL (33.0-37.0); Mean Corpuscular Hgb 30.1 pg (27.0-31.0); Mean Platelet Volume 9.9 fL (7.4-10.4); Platelet Count 114 10^3/uL (130-400); Red Blood Cell Count 3.16 10^6/uL (4.70-6.10); Red Cell Dist. Width 13.2 % (11.5-14.5); White Blood Cell Count 9.7 10^3/uL (4.8-10.8)
[2024-10-04 03:51] LABS: Blood Urea Nitrogen 35 mg/dl (9-20); Calcium 8.2 mg/dl (8.4-10.2); Carbon Dioxide 27 mmol/L (22-30); Chloride 103 mmol/L (98-107); Estimated Creatinine Clearance 67 ml/min; Glucose 109 mg/dl (70-99); Magnesium 2.1 mg/dl (1.6-2.3); Potassium 3.8 mmol/L (3.5-5.1); Sodium 136 mmol/L (135-145); eGFR > 60.00
--- NOTE | 2024-10-04 04:00 | PTCARENOTE ---
no acute changes. VSS. CT drainage WNL.
--- NOTE | 2024-10-04 04:30 | W.PN.CT ---
Today's Communication / Plan
-
-pod #2
-no significant issues overnight
-CT output: 2 meds 40/130, 2 pleur 45/205 in 12/24 hrs
-repleted K
-diuresed with 40 iv Lasix on 10/03 (UO 750)
-follow Cr - 1.3 today (1.3 on 10/03, 1.0 preop)-follow
-follow platelets - 114K today (159 on 10/03)
-needs chest PT, IS, started Mucinex- pOx 88-92% on 5L NC
-encourage OOB, ambulate
Assessment / Plan
-
Assessment:
-S/P Median sternotomy/CABG x 4 (REGINALD to distal LAD, GSV to D2, GSV to D1, GSV to OM1)/Endoscopic harvest/prep of RLE GSV, by Dr. Ace, 10/02/24, pod#2
-Severe 2V CAD involving LAD and Left circumflex
-USA
-LVEF 55% per intraop OFELIA
-HTN
-HLD
-T2DM (hgb A1C 11.1)
-Class 1 obesity (BMI 30)
-Former tobacco use (quit 40 yrs ago)
-S/P inguinal hernia repair
-S/P Lower teeth implants
-S/P L forearm tendon repair
-Acute postop blood loss/Anemia (stable without transfusion)
-Acute postop thrombocytopenia (Stable without active bleed)
-Acute postop atelectasis/pleural effusion
-Acute postop hypoxemia
-Acute postop hypovolemia with subsequent hypervolemia
-Postop AZEEM
Discussed patient care with: Nursing and Care Team
Subjective
Procedure
Median sternotomy/CABG x 4 (REGINALD to distal LAD, GSV to D2, GSV to D1, GSV to OM1)/Endoscopic harvest/prep of RLE GSV, by Dr. Ace, 10/02/24
-
Date of Service: October 04, 2024
Objective Data
-
Lab Results
10/04/24 03:07
10/04/24 03:07
PT 17.4 Sec (11.4-14.6) H 10/02/24 13:03
INR 1.39 10/02/24 13:03
APTT 30.8 Sec (23.4-35.0) 10/02/24 13:03
Vital Signs
Vital Signs
Temp Pulse Resp BP Pulse Ox
99 F 82 12 113/65 90
10/04/24 00:00 10/04/24 04:00 10/04/24 04:00 10/04/24 04:00 10/04/24 04:00
CT Intake/Output/Weight
10/03/24 10/03/24 10/04/24
06:59 18:59 06:59
Intake Total 483.9 / 494.9 648.5 / 795.2 146.7 / 795.2
Output Total 1075 / 2800 1000 / 1385 385 / 1385
Balance -591.1 / -2305.1 -351.5 / -589.8 -238.3 / -589.8
SaO2: 90
Physical Exam
-
General: Awake and AOx3
Cardiovascular: Regular rate & rhythm, No Murmurs and Rub
Respiratory: Decreased Breath Sounds
Sternum: Stable
Incision: Clean, Dry and Dressing Intact
Extremities: Other (trace edema b/l, 2+ DPs b/l)
Abdomen: soft, nontender, nondistended, + bowel sounds
Data Reviewed
-
Lab Results: Results Reviewed
Medications: Active Meds Reviewed
Chest X-Ray: Report Reviewed and Image Reviewed
ECG: Report Reviewed and Image Reviewed
[2024-10-04 04:56] LABS: Glucose - Point of Care 111 mg/dl (70-99)
[2024-10-04] MEDS: TYLENOL 1000 MG PO ×3 (05:51→23:55)
[2024-10-04] MEDS: KLOR-CON 20 MEQ PO (05:51)
[2024-10-04 07:03] LABS: Glucose - Point of Care 75 mg/dl (70-99)
[2024-10-04] MEDS: NOVOLOG FLEXPEN 4 UNITS SC ×2 (07:29→11:43)
[2024-10-04] MEDS: BACTROBAN 2% OINTMENT 1 APPLIC NASAL ×2 (07:30→21:20)
--- NOTE | 2024-10-04 07:41 | W.PN.INTV ---
Today's Communication / Plan
Recommendations
Monitor chest tube output
Mucinex, incentive spirometry
Chest physiotherapy
Insulin as needed
Transition to telemetry-call pulmonary if respiratory issues arise
Assessment
-
59-year-old male former smoker quit many years ago with a history of diabetes found to have significant CAD and underwent CABG x 4-rotary filter operator consulted for postoperative ventilator/critical care management 10/02/2024.
Coronary artery disease
Status post CABG x 4-Melvina-LAD, GSV-D2, GSV-D1, GSV-OM1-Dr. Ace 10/02/2024
Mild anemia
Mild thrombocytopenia
Hyperglycemia-A1c 11.1%
Conditions present prior to admission:
Diabetes
Plan
Respiratory status stable postextubation
Hemodynamically stable
Encourage incentive spirometry
Increase activity
Aspiration precautions
Patient delined
Continue to monitor chest tube output
Follow hemoglobin
Continue to follow platelet count and coags
Transfuse blood product as needed
CT surgery following chest tubes as well
Follow blood sugar
Insulin supplementation-change from drip
A1c 11.1%
Nutrition
Out of bed and begin ambulation
DVT prophylaxis
Patient will be transferred to telemetry phase-call pulmonary if respiratory issues arise
Critical care statement: A total of 34 minutes of critical care time was provided for this patient today. This includes management of ventilator, spontaneous breathing trial, arterial blood gases, pressors, of unstable vital signs, evaluation of the
patient at bedside, management of insulin drip, reviewing the patient's pertinent medical records including radiographs, microbiology, laboratory evaluations, and discussion with primary team and critical care nursing.
Diagnostic data:
Chest x-ray 09/28/2024-NAD
CT chest 03/16/2013-bilateral lower lobe infiltrates with air bronchograms likely representing atelectasis
CT chest 09/29/2024-no acute disease in the chest, minimally calcified atherosclerotic disease, mild bibasilar lingular and right middle lobe atelectasis versus scarring
Echocardiogram 09/28/2024-EF 50%, normal diastolic function, mild mitral regurgitation
Cardiac catheterization 09/28/2024-proximal LAD has a tubular 95% stenosis, mid LAD has eccentric 70% stenosis, distal to apical LAD has 70% stenosis, OM1 is small to medium caliber with 70% stenosis, elevated LVEDP at 20
Subjective Dataa
Subjective Data
Date of Service:
Date of Service: October 04, 2024
Chief Complaint: Insurance Premium Auditor Follow Up, Pulmonary Follow Up and Vent Management Follow Up
Subjective:
Doing well, tolerated extubation, pain controlled, no complaints of shortness of breath, chest pain
Review of Systems
General: Other (Per HPI)
Objective Data
Data Reviewed
Vital Signs / I&O / Oxygen:
Vital Signs
Temp Pulse Resp BP Pulse Ox
99 F 95 16 120/66 95
10/04/24 07:34 10/04/24 07:00 10/04/24 07:34 10/04/24 07:00 10/04/24 07:34
Intake and Output
10/03/24 10/04/24 10/05/24
06:59 06:59 06:59
Intake Total 483.9 / 494.9 825.2 / 835.4 20.4 / 20.4
Output Total 2750 / 2800 1420 / 1580 160 / 160
Balance -2266.1 / -2305.1 -594.8 / -744.6 -139.6 / -139.6
SaO2 95
Nasal Cannula flow liters per 4
minute
Physical Exam
General: Respiratory Distress (n) and Comfortable
HEENT: Normocephalic, Anicteric and Moist Mucous Membranes
Cardiovascular: Regular Rhythm
Respiratory: Wheeze (n), Crackles (n), Rhonchi (n), Non-Labored Respirations and Accessory Resp Muscle Use (n)
GI: Soft, Non Distended and Non Tender
Neurology: Awake, Alert and No Motor Deficits
Skin: Warm, Good Color, Cyanosis, Jaundice (n) and Rash (n)
Labs/Micro/Reports
Lab Data
10/04/24 03:07
10/04/24 03:07
--- NOTE | 2024-10-04 07:45 | PTCARENOTE ---
pt received from previous RN, oriented, OOB in chair. SR on the monitor, HR 80-90s. no epicardial wires. SBP 120s, palpable pulses. pt on 4LNC, 91-95% POX. lungs diminished, scattered rhonchi. shallow breathing. chest PT performed. CTx4, no air leak
or crepitus noted. pt abdomen s/n, denies n/v. +BS, +flatus. diet tolerated well. voids. sternal incision intact. chest tube dressing c/d/i. R groin puncture intact, ecchymotic. RLE incision intact. RIJ cordis maintained. PIV. insulin gtt running
per protocol. see worklist for VS, I&O, and assessment.
[2024-10-04 07:58] LABS: Glucose - Point of Care 160 mg/dl (70-99)
[2024-10-04] MEDS: LIDOCAINE 4% PATCH 1 PATCH TOPICAL (08:16)
[2024-10-04] MEDS: NEURONTIN 100 MG PO ×3 (08:16→23:55)
[2024-10-04] MEDS: MAGNESIUM OXIDE 500 MG PO ×2 (08:16→21:21)
[2024-10-04] MEDS: PROTONIX 40 MG PO (08:16)
[2024-10-04] MEDS: LOW STRENGTH ASPIRIN 81 MG PO (08:16)
[2024-10-04] MEDS: SENOKOT-S 1 TABLET PO ×2 (08:16→21:21)
[2024-10-04] MEDS: PLAVIX 75 MG PO (08:16)
[2024-10-04] MEDS: LOPRESSOR 12.5 MG PO ×2 (08:16→21:20)
[2024-10-04] MEDS: ROXICODONE 5 MG PO ×2 (08:26→21:21)
--- NOTE | 2024-10-04 08:34 | PN.DE.MGMTRT ---
Insulin Management
- -
10/04/2024: Diabetes Management follow up.
Patient admitted 09/28 with recurrent episodes of exertional substernal chest tightness associated with SOB x's 3 episodes. PMH: HTN, Obesity, h/o Smoking and T2DM. S/P Cardiac Cath 09/28. Prior to admission was taking no medications for diabetes,
stopped in 07/16 due to loss of insurance. A1C on admission 11.1%.
Pt is awake alert and oriented able to discuss diabetes management.
Currently on glycemic protocol requiring .2 to 7 units of insulin per hour. Will transition to basal bolus insulin with farxiga today. Will start 10 mg farxiga now NPH 10 units at 1pm drip off in 1.5 hours, with AC novolog 5 units to start with
dinner and hs lantus 18 units. Will check 3AM glucose.
Discussed with nurse.
Pt has CGM in place- Kamila 2 and is already familiar with insulin pen use.
Diabetes History
- -
Type of Diabetes: 2 requiring insulin
Pre-Admission Diabetes Regimen
10/04/24
03:07
Creatinine 1.3
Lab Results
Hemoglobin A1c 11.1 % (4.0-5.6) H 09/28/24 09:11
Insulin Pump Settings
IP Diabetes Regimen
10/03/24 10/03/24 10/03/24
10:02 12:00 14:02
Glucose
POC Glucose 139 H 132 H 132 H
10/03/24 10/03/24 10/03/24
15:58 17:01 18:00
Glucose
POC Glucose 282 H 315 H 251 H
10/03/24 10/03/24 10/03/24
19:06 20:00 21:09
Glucose
POC Glucose 192 H 195 H 193 H
10/03/24 10/03/24 10/04/24
22:06 23:07 00:12
Glucose
POC Glucose 137 H 100 H 87
10/04/24 10/04/24 10/04/24
01:07 03:07 04:54
Glucose 109 H
POC Glucose 97 115 H 111 H
10/04/24 10/04/24
07:02 07:57
Glucose
POC Glucose 75 160 H
Meal type: Dinner
Meal type: Lunch
Meal type: Breakfast
Amount consumed: 90%
Amount consumed: 90%
Amount consumed: 100%
Patient Education
[2024-10-04] MEDS: FARXIGA 10 MG PO (09:11)
[2024-10-04 09:12] LABS: Glucose - Point of Care 225 mg/dl (70-99)
--- NOTE | 2024-10-04 09:36 | PTCARENOTE ---
Roxicodone 5mg PO given for pain as ordered. oral hygiene performed, pt placed back to bed. CTx4 dc'd as ordered, dressing c/d/i. pt washed w/ CHG wipes, gown changed. face washed. ambulated in hallway w/ stand by assist. OOB in chair. IS
encouraged.
[2024-10-04 10:03] LABS: Glucose - Point of Care 199 mg/dl (70-99)
--- NOTE | 2024-10-04 11:00 | W.PN.CARDCBS ---
Addendum entered and electronically signed by Jm Justice MD 10/04/24 11:10:
I saw and examined the patient.
The INSTRUCTIONAL DESIGNER or PA's note was reviewed and I agree with the note.
Comment: General: Well developed, well nourished in NAD.
Neck: Supple, no JVD, HJR, carotids +2 B/L, no bruits bilaterally.
Heart: Non displaced PMI, RRR, no murmurs, No S3, S4, no rubs.
Lungs: Scattered rhonchi
Sternal dressings noted
Extremities: No clubbing, cyanosis or edema bilaterally.
Neuro: Grossly nonfocal, awake, alert and oriented x3.
He continues to do well. He remains in sinus rhythm. No further heart block with holding beta-sammy and amiodarone. Chest tube to come out today.
Original Note:
Today's Communication / Plan
-
continue post op care
follow rhythm
wean supp O2
Impression / Plan
-
Primary Claims Adjuster: none prior to admission
Assessment:
Presentation with , [place]
Negative trop x1
MV CAD by cath 09/28 - LAD/diag
s/p CABG x 4 (REGINALD to distal LAD, GSV to D2, GSV to D1, GSV to OM1), 10/02/2024
Poorly controlled DM2
HTN
Hypertriglyceridemia
Remote former smoker
Family history of CAD
ECHO 09/28/24: EF 58%, no regional wall motion abnormalities noted, mild MR
Cardiac cath 09/28/2024: LM: Minimal luminal irregularities. LAD: Proximal LAD 90 to 95% stenosis, ostial to proximal D1 80% stenosis, mid LAD 60 to 70% stenosis, distal to apical LAD with 2 serial 70% stenoses. Circumflex: OM1 with 70% ostial
stenosis, OM 280 to 85% stenosis mid. RCA small vessel with minimal luminal irregularities
Plan:
-Status post CABG x 4 REGINALD to distal LAD, GSV to D2, GSV to D1, GSV to OM1 10/02/24
-Remains on 5 L supplemental oxygen. Wean as able. Diuresis with IV Lasix. Creatinine stable at 1.3
-Telemetry reviewed overnight. in SR without recurrence of AV block noted. Beta-sammy resumed. Amio remains on hold
-Continue aspirin, Plavix. Hemoglobin 9.5
-continue post op care
-Diabetes poorly controlled, hemoglobin A1c 11%, will need strict control moving forward. Appreciate diabetic education/INSTRUCTIONAL DESIGNER
-LDL 93. Triglycerides 404. continue statin, new this admission
-cardiac rehab
-d/w nursing
Progress Note - Claims Adjuster
Subjective
Date of Service: October 04, 2024
Reports some discomfort with deep breathing. No dizziness or lightheadedness
Objective
Labs:
10/04/24 03:07
10/04/24 03:07
Labs
Hgb 9.5 g/dL (13.0-18.0) L 10/04/24 03:07
Hct 27.8 % (39.0-52.0) L 10/04/24 03:07
Plt Count 114 10^3/uL (130-400) L D 10/04/24 03:07
PT 17.4 Sec (11.4-14.6) H 10/02/24 13:03
INR 1.39 10/02/24 13:03
APTT 30.8 Sec (23.4-35.0) 10/02/24 13:03
Sodium 136 mmol/L (135-145) 10/04/24 03:07
Potassium 3.8 mmol/L (3.5-5.1) 10/04/24 03:07
BUN 35 mg/dl (9-20) H 10/04/24 03:07
Creatinine 1.3 mg/dL (0.7-1.3) 10/04/24 03:07
Glucose 109 mg/dl (70-99) H 10/04/24 03:07
Vital Signs and I&O:
Vital Signs
Temp Pulse Resp BP Pulse Ox
99 F 81 16 123/65 95
10/04/24 07:34 10/04/24 09:00 10/04/24 10:00 10/04/24 09:00 10/04/24 10:00
Vital Signs
Temp Pulse Resp BP Pulse Ox
99 F 81 16 123/65 95
10/04/24 07:34 10/04/24 09:00 10/04/24 10:00 10/04/24 09:00 10/04/24 10:00
Intake & Output
10/02/24 10/03/24 10/04/24 10/05/24
07:59 07:59 07:59 07:59
Intake Total 429.6 / 429.6 494.9 / 505.9 834.6 / 834.6
Output Total 2800 / 2840 1530 / 1530
Balance 429.6 / 429.6 -2305.1 / -2334.1 -695.4 / -695.4
Physical Exam
Physical Exam
GEN: No distress, awake, alert, oriented x3. sitting in chair. on supp O2
HEENT: supple, anicteric, mmm, eomi
LUNGS: no audible wheezes, non labored respirations
CV: Reg, S1/S2, no murmur
ABD: soft, BS+, NT/ND
EXT: No cyanosis, clubbing. trace edema of B/L LE
NEURO: Gross non-focal
SKIN: Warm, pink, dry. No rash. Sternotomy dressing c/d/i
[2024-10-04] MEDS: NOVOLIN R INSULIN INFUSION 100 IV (11:08)
[2024-10-04 11:11] LABS: Glucose - Point of Care 155 mg/dl (70-99)
--- NOTE | 2024-10-04 11:22 | CM ---
CM following for DC planning needs.
Noted initial assessment. Prior to admission, patient resides w/ spouse in a private 1 story home. Functionally, patient is indep. at baseline.
Patient is POD#[address] Surgery[address]
Anticipated DC plan is for home w/ CT Transitional Care RN.
CM to follow.
[2024-10-04] MEDS: NSS 500 IV (11:43)
--- NOTE | 2024-10-04 11:49 | CM ---
Priced the following medications per request of Diabetic PATROL AGENT-
Contacted patient's RX plan- [phone]
Farxiga is estimated to be 211.66/ month supply. Jardiance would be 222.21 for a month supply. Patient would be eligible for both a free 30 d coupon + $0/month coupon. Will place in chart.
Novolog is estimated to be $70.25/month supply versus Humalog $145.76/mo.
Basaglar pen is estimated to be $28.85/month versus Lantus $41/mo.
TT to PATROL AGENT to notify.
--- NOTE | 2024-10-04 12:30 | PTCARENOTE ---
pt VSS, RA 91-95% POX. IS 1500ml. OOB in chair for lunch.
[2024-10-04 13:06] LABS: Glucose - Point of Care 118 mg/dl (70-99)
[2024-10-04] MEDS: NOVOLIN N vial 0.1 UNITS SC (13:06)
[2024-10-04 14:40] LABS: Glucose - Point of Care 104 mg/dl (70-99)
--- NOTE | 2024-10-04 16:00 | PTCARENOTE ---
pt VSS, insulin gtt dc'd as ordered. pt ambulated in hallway independently w/ family. OOB in chair. voids in urinal.
[2024-10-04] MEDS: CRESTOR 40 MG PO (17:26)
[2024-10-04] MEDS: NOVOLOG FLEXPEN-LOW RESISTANCE SC (17:26)
[2024-10-04] MEDS: NOVOLOG FLEXPEN 5 UNITS SC (17:26)
[2024-10-04 17:27] LABS: Glucose - Point of Care 141 mg/dl (70-99)
--- NOTE | 2024-10-04 21:30 | PTCARENOTE ---
Report received from CLIFF Littlejohn. Walking rounds done. Pt awake, alert, oriented x 4. Speech clear. Moves all extremities equally x 4. Pt walked to IVU waiting room and back independently with family. Currently reclining in bed, supine. O2 sat on room
air 85-86%. 3L/NC applied. Pt does c/o 5/10 sternal pain. Roxicodone 5 mg po given. CDB and IS encouraged. IS peak 1500 mls. Sats up to 93-94% on 3L/NC. Pt also with moist nonproductive cough. Mucinex given as scheduled. Pt with audible hear tones.
SR. Normotensive. For pulse and wound assessments, see flowsheets. Belly soft, nontender. Passing flatus. No BM since CVOR. Normoactive bowel sounds. Voiding clear, yellow urine. Does report urgency. No c/o dysuria. CHEMA Lockett at bedside and made
aware. Accuchecks ACHS. Ongoing plan of care.
--- NOTE | 2024-10-04 23:45 | PTCARENOTE ---
Pt given CHG bath. Pt sat on side of bed. Chest PT done. CDB and IS done. IS peak 1500 mls. Sats up to 93-95% on 3L/NC. Accucheck done. Glucose 139. Lantus 18 units given as ordered. Pt with large unmeasured void in toilet. Pt attempting to go to
sleep.
[2024-10-04 23:52] LABS: Glucose - Point of Care 139 mg/dl (70-99)
[2024-10-04] MEDS: LANTUS 0.18 UNITS SC (23:54)
[2024-10-05] VITALS (10 sets, daily range): BP systolic 104–130; BP diastolic 61–86; PULSE 73–81; O2SAT 95; BMI 30.5
--- NOTE | 2024-10-05 03:00 | W.PN.CT ---
Addendum entered and electronically signed by Ryan Ace MD 10/05/24 06:31:
I saw and examined the patient.
The PA's note was reviewed and I agree with the note.
Comment:
Doing well.
OOB, ambulate today
Diuresis today
Creat 1.2 today
Original Note:
Today's Communication / Plan
-
-pod #3
-no significant issues overnight
-feels better after CTs came out. Encourage IS (1750 so far), chest PT
-consider diuresis
-follow Cr (1.3 on 10/04 and 10/03, 1.0 preop)
-follow platelets (114K on 10/04, 159 on 10/03)
-labs pending
-encourage OOB, ambulate
Assessment / Plan
-
Assessment:
-S/P Median sternotomy/CABG x 4 (REGINALD to distal LAD, GSV to D2, GSV to D1, GSV to OM1)/Endoscopic harvest/prep of RLE GSV, by Dr. Ace, 10/02/24, pod#3
-Severe 2V CAD involving LAD and Left circumflex
-[place]
-LVEF 55% per intraop OFELIA
-HTN
-HLD
-T2DM (hgb A1C 11.1)
-Class 1 obesity (BMI 30)
-Former tobacco use (quit 40 yrs ago)
-S/P inguinal hernia repair
-S/P Lower teeth implants
-S/P L forearm tendon repair
-Acute postop blood loss/Anemia (stable without transfusion)
-Acute postop thrombocytopenia (Stable without active bleed)
-Acute postop atelectasis/pleural effusion
-Acute postop hypoxemia
-Acute postop hypovolemia with subsequent hypervolemia
-Postop AZEEM
Discussed patient care with: Nursing and Care Team
Subjective
Procedure
Median sternotomy/CABG x 4 (REGINALD to distal LAD, GSV to D2, GSV to D1, GSV to OM1)/Endoscopic harvest/prep of RLE GSV, by Dr. Ace, 10/02/24
-
Date of Service: October 05, 2024
Objective Data
-
PT 17.4 Sec (11.4-14.6) H 10/02/24 13:03
INR 1.39 10/02/24 13:03
APTT 30.8 Sec (23.4-35.0) 10/02/24 13:03
Vital Signs
Vital Signs
Temp Pulse Resp BP Pulse Ox
98.5 F 69 15 119/75 95
10/04/24 23:34 10/05/24 02:00 10/04/24 23:34 10/04/24 23:34 10/05/24 02:00
CT Intake/Output/Weight
10/04/24 10/04/24 10/05/24
06:59 18:59 06:59
Intake Total 176.7 / 835.4 150.4 / 150.4
Output Total 420 / 1580 710 / 810 100 / 810
Balance -243.3 / -744.6 -559.6 / -659.6 -100 / -659.6
SaO2: 95
Physical Exam
-
General: Awake and AOx3
Cardiovascular: Regular rate & rhythm, No Murmurs and Rub
Respiratory: Decreased Breath Sounds
Sternum: Stable
Incision: Clean, Dry and Dressing Intact
Extremities: Other (trace edema b/l, 2+ DPs b/l)
Data Reviewed
-
Lab Results: Results Reviewed
Medications: Active Meds Reviewed
Chest X-Ray: Report Reviewed and Image Reviewed
ECG: Report Reviewed and Image Reviewed
--- NOTE | 2024-10-05 03:45 | PTCARENOTE ---
Labs drawn and sent. VS done. Blood glucose checked: 133. Sats 95-96% on 3L/NC. Pt sleeping comfortable. No c/o pain.
[2024-10-05 03:48] LABS: Glucose - Point of Care 133 mg/dl (70-99)
[2024-10-05 04:16] LABS: Hematocrit 25.9 % (39.0-52.0); Mean Corp Hgb Conc. 34.7 g/dL (33.0-37.0); Mean Corpuscular Hgb 30.6 pg (27.0-31.0); Mean Corpuscular Volume 88.1 fL (80.0-94.0); Mean Platelet Volume 10.3 fL (7.4-10.4); Platelet Count 123 10^3/uL (130-400); Red Blood Cell Count 2.94 10^6/uL (4.70-6.10); Red Cell Dist. Width 13.2 % (11.5-14.5); White Blood Cell Count 9.4 10^3/uL (4.8-10.8)
[2024-10-05 04:39] LABS: Blood Urea Nitrogen 31 mg/dl (9-20); Calcium 8.1 mg/dl (8.4-10.2); Carbon Dioxide 25 mmol/L (22-30); Chloride 100 mmol/L (98-107); Estimated Creatinine Clearance 73 ml/min; Glucose 125 mg/dl (70-99); Magnesium 2.3 mg/dl (1.6-2.3); Sodium 134 mmol/L (135-145); eGFR > 60.00
[2024-10-05] MEDS: TYLENOL 1000 MG PO ×3 (06:30→22:31)
--- NOTE | 2024-10-05 06:39 | PTCARENOTE ---
Pt helped to standing scale, weighed. Then helped to chair. Dr. Ace at bedside to see pt. Sats 96% on 3L/NC/O2. O2 down to 2L/NC.
[2024-10-05] MEDS: BACTROBAN 2% OINTMENT 1 APPLIC NASAL ×2 (08:02→20:33)
[2024-10-05] MEDS: NOVOLOG FLEXPEN 5 UNITS SC ×3 (08:02→17:55)
[2024-10-05] MEDS: NOVOLOG FLEXPEN-LOW RESISTANCE 300 UNITS SC (08:03)
[2024-10-05 08:08] LABS: Glucose - Point of Care 126 mg/dl (70-99)
--- NOTE | 2024-10-05 08:14 | PN.DE.MGMTRT ---
Addendum entered and electronically signed by Krystle Portillo NP 10/05/24 10:17:
HERBER researched cost of new medications for patient. (Thank you)
At discharge patient to use Free one month coupon and then $10 coupon for Farxiga.
Basaglar for long acting insulin and Novolog for rapid acting insulin.
Original Note:
Insulin Management
- -
10/05/2024: Diabetes Management follow up.
Patient admitted 09/28 with recurrent episodes of exertional substernal chest tightness associated with SOB x's 3 episodes. PMH: HTN, Obesity, h/o Smoking and T2DM. S/P Cardiac Cath 09/28. Prior to admission was taking no medications for diabetes,
stopped in 07/16 due to loss of insurance. A1C on admission 11.1%.
Pt is awake alert and oriented able to discuss diabetes management.
Transitioned from glycemic protocol to subcutaneous insulin and Farxiga 10 mg daily. Patient received first dose farxiga 2/12 AM, insulin infusion stopped at 2:30pm. Pre dinner glucose 141, received 5 units novolog for meal and @ HS received 18
units Lantus. 3AM glucose 133. Fasting glucose 126.
Will continue current regimen: Farxiga 10 mg daily, 5 units novolog AC with low corrective and 18 units lantus.
Discussed with nurse.
Pt has CGM in place- Kamila 2 and is already familiar with insulin pen use.
Diabetes History
- -
Type of Diabetes: 2 requiring insulin
Pre-Admission Diabetes Regimen
10/05/24
03:50
Creatinine 1.2
Lab Results
Hemoglobin A1c 11.1 % (4.0-5.6) H 09/28/24 09:11
Insulin Pump Settings
IP Diabetes Regimen
10/04/24 10/04/24 10/04/24
09:10 10:02 11:10
Glucose
POC Glucose 225 H 199 H 155 H
10/04/24 10/04/24 10/04/24
13:05 14:38 17:25
Glucose
POC Glucose 118 H 104 H 141 H
10/04/24 10/05/24 10/05/24
23:51 03:47 03:50
Glucose 125 H
POC Glucose 139 H 133 H
10/05/24
08:00
Glucose
POC Glucose 126 H
Meal type: Dinner
Meal type: Breakfast
Amount consumed: 100%
Patient Education
[2024-10-05] MEDS: MAGNESIUM OXIDE 500 MG PO ×2 (08:47→20:33)
[2024-10-05] MEDS: KLOR-CON 20 MEQ PO (08:47)
[2024-10-05] MEDS: MUCINEX 600 MG PO ×2 (08:47→20:33)
[2024-10-05] MEDS: PROTONIX 40 MG PO (08:47)
[2024-10-05] MEDS: LOW STRENGTH ASPIRIN 81 MG PO (08:47)
[2024-10-05] MEDS: PLAVIX 75 MG PO (08:47)
[2024-10-05] MEDS: FARXIGA 10 MG PO (08:47)
[2024-10-05] MEDS: NEURONTIN 100 MG PO ×3 (08:47→22:31)
[2024-10-05] MEDS: SENOKOT-S 1 TABLET PO ×2 (08:47→20:33)
[2024-10-05] MEDS: LASIX 40 MG IV (08:48)
[2024-10-05] MEDS: LIDOCAINE 4% PATCH TOPICAL (08:48)
[2024-10-05] MEDS: LOPRESSOR PO (09:40)
--- NOTE | 2024-10-05 10:32 | PTCARENOTE ---
Patient received from vehicle window tinter resting oob in chair, AAO X 3, states pain controlled at this time. NSR via cm, SaO2 @ 96% on RA. RIJ Cordis present, flushed and patent. All procedural sites stable. Patient voiding spontaneously and independently.
Patient updated to plan of care for the day, in agreement. See work list for full assessment and interventions performed.
--- NOTE | 2024-10-05 11:50 | W.PN.CARDCBS ---
Addendum entered and electronically signed by Misha Wang MD 10/05/24 18:05:
I saw and examined the patient.
The Field Irrigation Worker's note was reviewed and I agree with the note.
Comment: Briefly, 59-year-old man presenting with chest discomfort concerning for unstable angina and found to have multivessel CAD for which she underwent CABG x 4 on 10/02/2024
Doing well postoperatively, ambulating the halls without symptoms
Mild lower extremity edema on exam, agree with gentle diuresis as planned
Brief episode of bradycardia this morning with 2-1 AV block. Patient does not recall if he was symptomatic with this. Would hold metoprolol and monitor on telemetry.
Agree with current cardiac meds� aspirin/Plavix, high intensity statin
Original Note:
Today's Communication / Plan
-
continue post op care
follow rhythm, holding BB/amio
Impression / Plan
-
Primary Medical Coordinator Pesticide Use: none prior to admission
Assessment:
Presentation with , [facility]
Negative trop x1
MV CAD by cath 09/28 - LAD/diag
s/p CABG x 4 (REGINALD to distal LAD, GSV to D2, GSV to D1, GSV to OM1), 10/02/2024
Poorly controlled DM2
HTN
Hypertriglyceridemia
Remote former smoker
Family history of CAD
ECHO 09/28/24: EF 58%, no regional wall motion abnormalities noted, mild MR
Cardiac cath 09/28/2024: LM: Minimal luminal irregularities. LAD: Proximal LAD 90 to 95% stenosis, ostial to proximal D1 80% stenosis, mid LAD 60 to 70% stenosis, distal to apical LAD with 2 serial 70% stenoses. Circumflex: OM1 with 70% ostial
stenosis, OM 280 to 85% stenosis mid. RCA small vessel with minimal luminal irregularities
Plan:
-Status post CABG x 4 REGINALD to distal LAD, GSV to D2, GSV to D1, GSV to OM1 10/02/24
-Weaned off oxygen. Continue diuresis. Creatinine improving, 1.2 on 10/05
-In sinus rhythm, 1 very transient episode of AV block. Beta-sammy and Amio on hold
-Continue aspirin, Plavix
-Diabetes poorly controlled, hemoglobin A1c 11%, will need strict control moving forward. Appreciate diabetic education/CUSTOMER RESOURCE SPECIALIST
-LDL 93. Triglycerides 404. continue statin, new this admission
-cardiac rehab
-Outpatient follow-up with [facility] upon discharge
-d/w CT CUSTOMER RESOURCE SPECIALIST, nursing
Progress Note - Medical Coordinator Pesticide Use
Subjective
Date of Service: October 05, 2024
Reports ambulatory around unit and did steps without issues. No dizziness or lightheadedness. Pain well-controlled
Objective
Labs:
10/05/24 03:50
10/05/24 03:50
Labs
Hgb 9.0 g/dL (13.0-18.0) L 10/05/24 03:50
Hct 25.9 % (39.0-52.0) L 10/05/24 03:50
Plt Count 123 10^3/uL (130-400) L 10/05/24 03:50
PT 17.4 Sec (11.4-14.6) H 10/02/24 13:03
INR 1.39 10/02/24 13:03
APTT 30.8 Sec (23.4-35.0) 10/02/24 13:03
Sodium 134 mmol/L (135-145) L 10/05/24 03:50
Potassium 4.0 mmol/L (3.5-5.1) 10/05/24 03:50
BUN 31 mg/dl (9-20) H 10/05/24 03:50
Creatinine 1.2 mg/dL (0.7-1.3) 10/05/24 03:50
Glucose 125 mg/dl (70-99) H 10/05/24 03:50
Vital Signs and I&O:
Vital Signs
Temp Pulse Resp BP Pulse Ox
98.2 F 75 17 107/86 96
10/05/24 08:12 10/05/24 11:00 10/05/24 08:12 10/05/24 09:43 10/05/24 09:05
Vital Signs
Temp Pulse Resp BP Pulse Ox
98.2 F 75 17 107/86 96
10/05/24 08:12 10/05/24 11:00 10/05/24 08:12 10/05/24 09:43 10/05/24 09:05
Intake & Output
10/03/24 10/04/24 10/05/24 10/06/24
07:59 07:59 07:59 07:59
Intake Total 494.9 / 505.9 834.6 / 834.6 130.0 / 130.0 250 / 250
Output Total 2800 / 2840 1530 / 1530 650 / 650 950 / 950
Balance -2305.1 / -2334.1 -695.4 / -695.4 -520.0 / -520.0 -700 / -700
Physical Exam
Physical Exam
GEN: No distress, awake, alert, oriented x3. sitting in chair.
HEENT: supple, anicteric, mmm, eomi
LUNGS: no audible wheezes, non labored respirations
CV: Reg, S1/S2, no murmur
ABD: soft, BS+, NT/ND
EXT: No cyanosis, clubbing. trace edema of B/L LE
NEURO: Gross non-focal
SKIN: Warm, pink, dry. No rash. Sternotomy dressing c/d/i
--- NOTE | 2024-10-05 12:10 | PTCARENOTE ---
VS obtained, assessment stable. Remains oob in chair, awaiting lunch, states pain controlled.
[2024-10-05 12:21] LABS: Glucose - Point of Care 195 mg/dl (70-99)
[2024-10-05] MEDS: NOVOLOG FLEXPEN-LOW RESISTANCE 1 UNITS SC (12:22)
[2024-10-05] MEDS: NSS IV (12:24)
--- NOTE | 2024-10-05 13:36 | CM ---
CM following for DC planning needs.
Met w/ patient at bedside. He reports that he is feeling well.
We discussed DC plan for home w/ CT Transitional Care RN.
Will cont. to follow.
--- NOTE | 2024-10-05 15:55 | PTCARENOTE ---
VS obtained, assessment stable. Patient remains oob, states pain controlled. Visitors at bedside.
[2024-10-05] MEDS: CRESTOR 40 MG PO (17:54)
[2024-10-05 17:55] LABS: Glucose - Point of Care 207 mg/dl (70-99)
[2024-10-05] MEDS: NOVOLOG FLEXPEN-LOW RESISTANCE 2 UNITS SC (17:55)
--- NOTE | 2024-10-05 20:48 | PTCARENOTE ---
received the patient at the change of shift. AAOx3. family at the bedside. denies any pain at this time. SR on tele 70s. bp stable. trace LE edema noted/+ pulses. + cough/non productive. IS encouraged. 95% on RA. surgical incisions intact. patient
ambulating independently. steady on his feet. denies any lightheadedness/dizziness. sternal precautions maintained. no BM. passing gas. urinating yellow urine in the BSU. reviewed plan of care with patient and verbalized understanding. educated
patient to inform RN with any changes. call scott within reach.
[2024-10-05 22:10] LABS: Glucose - Point of Care 147 mg/dl (70-99)
[2024-10-05] MEDS: LANTUS 0.18 UNITS SC (22:31)
[2024-10-05] MEDS: ROXICODONE 2.5 MG PO (22:31)
--- NOTE | 2024-10-05 23:33 | PTCARENOTE ---
patient complaining of mild, 3/10, sternal incision pain. PRN oxy 2.5 given, see mar.
HR SR 70s. bp stable. 88% on RA when sleeping. placed patient on 2L NC-93%. call scott within reach.
[2024-10-06 03:31] VITALS: BP 106/74
[2024-10-06 03:57] LABS: Hematocrit 25.8 % (39.0-52.0); Hemoglobin 8.9 g/dL (13.0-18.0); Mean Corp Hgb Conc. 34.5 g/dL (33.0-37.0); Mean Corpuscular Hgb 30.2 pg (27.0-31.0); Mean Corpuscular Volume 87.5 fL (80.0-94.0); Mean Platelet Volume 9.8 fL (7.4-10.4); Platelet Count 135 10^3/uL (130-400); Red Blood Cell Count 2.95 10^6/uL (4.70-6.10); Red Cell Dist. Width 13.2 % (11.5-14.5); White Blood Cell Count 6.7 10^3/uL (4.8-10.8)
[2024-10-06 04:29] LABS: Blood Urea Nitrogen 32 mg/dl (9-20); Calcium 8.1 mg/dl (8.4-10.2); Carbon Dioxide 28 mmol/L (22-30); Chloride 102 mmol/L (98-107); Estimated Creatinine Clearance 67 ml/min; Glucose 130 mg/dl (70-99); Magnesium 2.3 mg/dl (1.6-2.3); Potassium 3.9 mmol/L (3.5-5.1); Sodium 135 mmol/L (135-145); eGFR > 60.00
[2024-10-06 06:00] VITALS: BMI 29.7
[2024-10-06] MEDS: TYLENOL 1000 MG PO (06:04)
--- NOTE | 2024-10-06 06:20 | W.PN.CT ---
Today's Communication / Plan
-
-pod #4
-no issues overnight, ambulated without issues
-had bradycardia with 2:1 AV block on 10/05 - Lopressor and Amio are on hold.
-tele 70s overnight. No violette or pauses
-follow 2v-CXR
-encourage IS, ambulate
-possible d/c soon
Assessment / Plan
-
Assessment:
-S/P Median sternotomy/CABG x 4 (REGINALD to distal LAD, GSV to D2, GSV to D1, GSV to OM1)/Endoscopic harvest/prep of RLE GSV, by Dr. Ace, 10/02/24, pod#4
-Severe 2V CAD involving LAD and Left circumflex
-USA
-LVEF 55% per intraop OFELIA
-HTN
-HLD
-T2DM (hgb A1C 11.1)
-Class 1 obesity (BMI 30)
-Former tobacco use (quit 40 yrs ago)
-S/P inguinal hernia repair
-S/P Lower teeth implants
-S/P L forearm tendon repair
-Acute postop blood loss/Anemia (stable without transfusion)
-Acute postop thrombocytopenia (Stable without active bleed)
-Acute postop atelectasis/pleural effusion
-Acute postop hypoxemia
-Acute postop hypovolemia with subsequent hypervolemia
-Postop AZEEM
Discussed patient care with: Nursing and Care Team
Subjective
Procedure
Median sternotomy/CABG x 4 (REGINALD to distal LAD, GSV to D2, GSV to D1, GSV to OM1)/Endoscopic harvest/prep of RLE GSV, by Dr. Ace, 10/02/24
-
Date of Service: October 06, 2024
Objective Data
-
PT 17.4 Sec (11.4-14.6) H 10/02/24 13:03
INR 1.39 10/02/24 13:03
APTT 30.8 Sec (23.4-35.0) 10/02/24 13:03
Vital Signs
Vital Signs
Temp Pulse Resp BP Pulse Ox
98.0 F 79 16 122/70 93
10/05/24 22:42 10/05/24 22:00 10/05/24 22:42 10/05/24 22:30 10/05/24 22:42
CT Intake/Output/Weight
10/05/24 10/05/24 10/06/24
06:59 18:59 06:59
Intake Total 340 / 590 250 / 590
Output Total 100 / 810 1325 / 1625 300 / 1625
Balance -100 / -659.6 -985 / -1035 -50 / -1035
SaO2: 93
Physical Exam
-
General: Awake and AOx3
Cardiovascular: Regular rate & rhythm, No Murmurs and No Rub
Respiratory: Clear and Decreased Breath Sounds
Sternum: Stable
Incision: Clean, Dry and Intact
Extremities: No Edema
Abdomen: soft, nontender, nondistended, + bowel sounds
Data Reviewed
-
Lab Results: Results Reviewed
Medications: Active Meds Reviewed
Chest X-Ray: Report Reviewed and Image Reviewed
ECG: Report Reviewed and Image Reviewed
--- NOTE | 2024-10-06 06:29 | PTCARENOTE ---
patient states sleeping well overnight. VSS. surgical incisions remain intact/no drainage. SR overnight 70s. no episodes of bradycardia/HB noted on tele review.
[2024-10-06 07:40] VITALS: BP 100/75
[2024-10-06 07:42] LABS: Glucose - Point of Care 123 mg/dl (70-99)
[2024-10-06] MEDS: NOVOLOG FLEXPEN-LOW RESISTANCE SC (07:42)
[2024-10-06] MEDS: NOVOLOG FLEXPEN 5 UNITS SC ×2 (07:43→11:41)
[2024-10-06] MEDS: LASIX 40 MG PO (07:55)
[2024-10-06] MEDS: SENOKOT-S 1 TABLET PO (07:55)
[2024-10-06] MEDS: PROTONIX 40 MG PO (07:55)
[2024-10-06] MEDS: KCL 40 MEQ PO (07:55)
[2024-10-06] MEDS: NEURONTIN 100 MG PO (07:55)
[2024-10-06] MEDS: MUCINEX 600 MG PO (07:55)
[2024-10-06] MEDS: PLAVIX 75 MG PO (07:55)
[2024-10-06] MEDS: MAGNESIUM OXIDE 500 MG PO (07:55)
[2024-10-06] MEDS: FARXIGA 10 MG PO (07:55)
[2024-10-06] MEDS: LOW STRENGTH ASPIRIN 81 MG PO (07:55)
[2024-10-06] MEDS: BACTROBAN 2% OINTMENT 1 APPLIC NASAL (07:56)
[2024-10-06] MEDS: LIDOCAINE 4% PATCH TOPICAL (07:56)
--- NOTE | 2024-10-06 08:00 | PTCARENOTE ---
pt received from previous RN, oriented, OOB in chair. SR on the monitor, HR 70-80s. SBP 100s, palpable pulses. pt on RA, 96% POX. lungs diminished in bases, productive cough. chest PT performed. IS encouraged. pt abdomen s/n, denies n/v. +BS,
+flatus. no BM yet. diet tolerated well. voids in urinal. sternal incision intact. 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 R groin puncture SHERRY, ecchymotic. RLE incision intact. PIV. see worklist for VS, I&O, and assessment.
--- NOTE | 2024-10-06 08:14 | PN.DE.MGMTRT ---
Insulin Management
- -
10/06/2024: Diabetes Management follow up.
Patient admitted 09/28 with recurrent episodes of exertional substernal chest tightness associated with SOB x's 3 episodes. PMH: HTN, Obesity, h/o Smoking and T2DM. S/P Cardiac Cath 09/28. Prior to admission was taking no medications for diabetes,
stopped in 07/16 due to loss of insurance. A1C on admission 11.1%.
Pt is awake alert and oriented able to discuss diabetes management.
10/04 Transitioned off glycemic protocol to SQ insulin and Farxiga 10 mg daily, insulin infusion stopped at 2:30pm.
10/05 Pre dinner glucose 207, received 5 units NovoLog for meal, HS glucose was 147 , pt received 18 units Lantus. FBG 130(V) this AM.
Will continue current regimen: Farxiga 10 mg daily, 5 units NovoLog AC with low corrective and 18 units Lantus.
Pt has CGM in place- [employer] [employer] 2 and is already familiar with insulin pen use.
Meds at D/C: Basaglar 18 units @ HS, NovoLog 5 units AC and Brenzavvy 20mg daily(Pt was taking WIRE MESH KNITTER)
Diabetes History
- -
Type of Diabetes: 2 requiring insulin
Pre-Admission Diabetes Regimen
10/06/24
03:32
Creatinine 1.3
Lab Results
Hemoglobin A1c 11.1 % (4.0-5.6) H 09/28/24 09:11
Insulin Pump Settings
IP Diabetes Regimen
10/05/24 10/05/24 10/05/24
12:20 17:53 22:08
Glucose
POC Glucose 195 H 207 H 147 H
10/06/24 10/06/24
03:32 07:41
Glucose 130 H
POC Glucose 123 H
Meal type: Breakfast
Meal type: Dinner
Meal type: Lunch
Meal type: Breakfast
Amount consumed: 100%
Amount consumed: 100%
Amount consumed: 90%
Amount consumed: 90%
Patient Education
[2024-10-06 10:03] VITALS: BP 114/70
[2024-10-06 10:15] VITALS: BP 125/77
--- NOTE | 2024-10-06 10:43 | W.DCSUMMARY ---
Addendum entered and electronically signed by SELMA Romero 10/06/24 14:14:
CDI query:
Acute post-op pulmonary insufficiency
Original Note:
Discharge Summary
Discharge Data
Date of Admission: 09/28/24
Date of Discharge: 10/06/24
Total time spent discharging patient (in min): 47
-
Pending Results: No
Hospital Course
Primary care physician:
Ceferino Foley
Outpatient heel seat trimmer:
Toña Vilchis
Inpatient consultants:
DCA, data science and iot manager, DM management director of retail operations
Procedures:
1. CABG x 4 (REGINALD to distal LAD, GSV to D2, GSV to D1, GSV to OM1)
Primary Diagnosis:
1. multivessel coronary artery disease
Secondary Diagnoses:
1. Hypertension
2. Type 2 diabetes mellitus
3. Obesity
4. Post op beta sammy intolerance
5. Post op fluid retention
HPI: 59 y/o male admitted on 09/28 with complaints of CP and LHC revealed MVD. He was taken to the [facility] on 10/02 for a CABG with Dr. Ace.
Hospital course: patient was admitted on 09/28 with c/o cp. he was found to have multivessel disease and was surgically worked up for CABG with Dr. Ace on 10/02. He returned to the CVICU post-operatively and was weaned off precedex and extubated by
1620. On 10/03 POD #1 levophed was weaned off and stacy was removed. Amiodarone and beta blockers were put on hold due to a 2:! conduction delay. He was diuresed with 40mg IV lasix. On 10/04 POD #2, patient's chest tubes were removed. He was
transitioned off insulin infusion and started on farxiga , novolog, and lantus. On 10/05 POD #3, morning BB was trialed due to some mild tachycardia and he developed a short episode of a 2:1 conduction delay. It was discussed with cardiology and
betablockers were put on hold again. He was again diuresed with 40mg IV lasix. He had no further episodes of bradycardia and his cordis was removed. On 2 POD #4, his 2 view CXR showed small b/l pleural effusions and he was diuresed with 40mg PO
lasix. He will be sent home with a 7 day rhythm star monitor and was deemed stable for discharge home.
Home medication changes:
see below
Discharge Plan
-
Patient Disposition: Home (Routine Discharge)
Discharge Diagnosis/Procedures: CABG (10/02/24)
Condition: Good
Diet: Low Cholesterol, Low Sodium and Diabetic, Carb Controlled
Activity: No strenuous activity
Driving Restrictions: Not until seen by your Dr
Bathing Restrictions: OK to Shower
Other Services: Cardiac Rehab
Specialty Instructions: Weigh Daily- Call MD for wt gain/loss 3 lbs overnight/5 lbs in 1 week
Activity Restrictions/Additional Instructions:
ACTIVITY:
-No strenuous activity: no heavy lifting, pushing, pulling anything over 15 pounds for one month
-continue to use stairs as tolerated
DRIVING RESTRICTIONS:
-No driving for one month or until approved by your surgeon
WOUND CARE:
-Shower daily. Use soap & water.
-No lotions, creams or powders on incision area.
DIET:
-continue a low fat/low cholesterol diet.
-IF you are diabetic, continue carb controlled diet.
CARDIAC REHAB:
-Please make appointment to start in 5-6 weeks with your local hospital program. (See Cardiac Rehabilitation Discharge Booklet).
SPECIALTY INSTRUCTIONS:
-Weigh yourself daily. Call your physician for any weight gain/loss of 3 lbs overnight or 5 lbs in one week.
-REPORT any clicking noise or uneven appearance of your sternum to your surgeon immediately.
-If you smoke, you are instructed to quit. The [place] smoking hotline phone number is [phone]
Stand Alone Forms: DC Instructions- Cath/EP Lab
Referrals:
CT Transitional Care Nurse [Outside] (The Cardiothoracic Transitional Care Nurse will call you to set up a visit in 1-2 days.)
[facility] [Outside]
(Cardiac Rehab Orientation appointment is on 11/08/2024@ 1:00pm.
The Cardiac Rehab gym is located on the first floor of the [facility].)
Alessandra Desouza PA-C [Specified Professional Personl] - 11/15/24 10:20 am
Ceferino Foley MD [Family Provider] -
Ryan Ace MD [Active] - 10/31/24 2:30 pm
Prescriptions:
New
acetaminophen 325 mg Tablet
650 mg PO Q4HPRN PRN (Reason: mild pain,headache,temp >101F ) Qty: 0 0RF
aspirin 81 mg Tablet,Chewable
81 mg PO DAILY Qty: 0 0RF
rosuvastatin 40 mg Tablet
40 mg PO QPM Qty: 30 1RF
insulin aspart U-100 [Novolog FlexPen U-100 Insulin] 100 unit/mL (3 mL) insulin pen
5 unit SC TID Qty: 15 1RF
clopidogrel 75 mg Tablet
75 mg PO DAILY Qty: 30 1RF
pantoprazole 40 mg Tablet,Delayed Release (Dr/Ec)
40 mg PO DAILY Qty: 30 1RF
gabapentin 100 mg Capsule
100 mg PO TID Qty: 30 0RF
insulin glargine [Basaglar KwikPen U-100 Insulin] 100 unit/mL (3 mL) insulin pen
18 unit SC QPM Qty: 15 1RF
cyclobenzaprine 10 mg Tablet
5 mg PO Q8HPRN PRN (Reason: muscle spasm) Qty: 10 0RF
oxycodone 5 mg Tablet
5 mg PO Q4HPRN PRN (Reason: severe pain) Qty: 15 0RF
(DME) pen needle, diabetic 29 gauge x 15/32' needle
See Rx Instructions .Route Qty: 100 0RF
Rx Instructions:
As directed
(DME) pen needle, diabetic [BD Ananya 2nd Gen Pen Needle] 32 gauge x 5/32' Needle
Qty: 130 0RF
Rx Instructions:
Pt taking insulin 4 times a day
Continued
bexagliflozin [Brenzavvy] 20 mg Tablet
20 mg PO DAILY
Discharge Orders:
Discharge Patient (As Directed); Ordered 10/06/24
Ordered By: Iris Cloud
Care Plan Goals
Care Plan Goals:
Problem: Readiness for enhanced knowledge related to diagnosis and treatment plan
Goal: Understand your diagnosis and treatment plan needs, including medications if applicable.
Instructions: Know your diagnosis, underlying causes and treatment plan options, including medications if applicable. Consult with your health care team to learn about your diagnosis and treatment plan, including medications if applicable.
Discharge Date and Time
Print Language: BAHAMIAN
--- NOTE | 2024-10-06 11:04 | W.PN.CARDCBS ---
Today's Communication / Plan
-
continue post op care
no BB/amio on DC
7 day rhythm star
Impression / Plan
-
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
Assessment:
Presentation with , [facility]
Negative trop x1
MV CAD by cath 09/28 - LAD/diag
s/p CABG x 4 (REGINALD to distal LAD, GSV to D2, GSV to D1, GSV to OM1), 10/02/2024
Poorly controlled DM2
HTN
Hypertriglyceridemia
Remote former smoker
Family history of CAD
ECHO 09/28/24: EF 58%, no regional wall motion abnormalities noted, mild MR
Cardiac cath 09/28/2024: LM: Minimal luminal irregularities. LAD: Proximal LAD 90 to 95% stenosis, ostial to proximal D1 80% stenosis, mid LAD 60 to 70% stenosis, distal to apical LAD with 2 serial 70% stenoses. Circumflex: OM1 with 70% ostial
stenosis, OM 280 to 85% stenosis mid. RCA small vessel with minimal luminal irregularities
Plan:
-Status post CABG x 4 REGINALD to distal LAD, GSV to D2, GSV to D1, GSV to OM1 10/02/24
-doing well
-with several episodes of very transient AV block while on amio or BB, none while off meds. plan to discharge off BB/amio with 7 day rhythm star monitor. will discuss re-trial of BB as OP pending monitor results.
-continue asa, plavix
-Diabetes poorly controlled, hemoglobin A1c 11%, will need strict control moving forward. started on farxiga. 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
-LDL 93. Triglycerides 404. continue statin, new this admission
-cardiac rehab
-for DC today. OP cardiac follow up arranged
-d/w CT SHINGLE SHEARING MACHINE OPERATOR, nursing
Progress Note - Motor Home Electrical Foreman
Subjective
Date of Service: October 06, 2024
feeling well. no issues overnight
Objective
Labs:
10/06/24 03:32
10/06/24 03:32
Labs
Hgb 8.9 g/dL (13.0-18.0) L 10/06/24 03:32
Hct 25.8 % (39.0-52.0) L 10/06/24 03:32
Plt Count 135 10^3/uL (130-400) 10/06/24 03:32
PT 17.4 Sec (11.4-14.6) H 10/02/24 13:03
INR 1.39 10/02/24 13:03
APTT 30.8 Sec (23.4-35.0) 10/02/24 13:03
Sodium 135 mmol/L (135-145) 10/06/24 03:32
Potassium 3.9 mmol/L (3.5-5.1) 10/06/24 03:32
BUN 32 mg/dl (9-20) H 10/06/24 03:32
Creatinine 1.3 mg/dL (0.7-1.3) 10/06/24 03:32
Glucose 130 mg/dl (70-99) H 10/06/24 03:32
Vital Signs and I&O:
Vital Signs
Temp Pulse Resp BP Pulse Ox
98.2 F 81 16 100/75 96
10/06/24 07:47 10/06/24 08:00 10/06/24 07:47 10/06/24 07:40 10/06/24 08:10
Vital Signs
Temp Pulse Resp BP Pulse Ox
98.2 F 81 16 100/75 96
10/06/24 07:47 10/06/24 08:00 10/06/24 07:47 10/06/24 07:40 10/06/24 08:10
Intake & Output
10/04/24 10/05/24 10/06/24 10/07/24
07:59 07:59 07:59 07:59
Intake Total 834.6 / 834.6 130.0 / 130.0 590 / 590
Output Total 1530 / 1530 650 / 650 2275 / 2275
Balance -695.4 / -695.4 -520.0 / -520.0 -1685 / -1685
Physical Exam
Physical Exam
GEN: No distress, awake, alert, oriented x3. sitting in chair.
HEENT: supple, anicteric, mmm, eomi
LUNGS: CTA B/L
CV: Reg, S1/S2, no murmur
ABD: soft, BS+, NT/ND
EXT: No cyanosis, clubbing. trace edema of B/L LE
NEURO: Gross non-focal
SKIN: Warm, pink, dry. No rash. Sternotomy dressing c/d/i
[2024-10-06 11:12] VITALS: BP 128/78
--- NOTE | 2024-10-06 11:25 | CM ---
CM following for DC planning needs.
Met w/ patient at bedside. Pt. is hopeful for DC today. He reports that he is feeling well.
We reviewed DC plan for home w/ CT Transitional Care RN.
We reviewed post op MD appointments, Cardiac Rehab.
No other identified DC needs.
Plan is for home w/ CT RN.
[2024-10-06 11:31] VITALS: BP 114/70; BP 125/77; PULSE 81; O2SAT 96; O2SAT 97
[2024-10-06] MEDS: NOVOLOG FLEXPEN-LOW RESISTANCE 3 UNITS SC (11:42)
[2024-10-06 11:44] LABS: Glucose - Point of Care 284 mg/dl (70-99)
[2024-10-06] MEDS: NSS IV (11:55)
--- NOTE | 2024-10-06 12:13 | PTCARENOTE ---
pt VSS, no changes in assessment. ambulating independently. voids in urinal. no c/o pain.
--- NOTE | 2024-10-06 13:40 | PTCARENOTE ---
rhythm star monitor in place. discharge instructions reviewed w/ patient, home meds reviewed. questions answered. IV and tele dc'd. pt showered and dressed self. rhythm star monitor reapplied. pt left w/ all belongings.
--- NOTE | 2024-10-06 13:56 | PN.CDI ---
CDI
- -
CDI:
Physician Documentation Request
Admit Date: 09/28/24 12:[address] Surgery,
Patient admitted for CABG.
Selected Entries
10/02/24
21:50 10/03/24
11:00 10/03/24
18:00
Nasal Cannula flow liters per minute 6 5 4
10/04/24
01:00 10/04/24
05:00 10/04/24
09:00
Nasal Cannula flow liters per minute 5 3 4
10/04/24
11:00 10/04/24
21:00 10/05/24
08:12
Oxygen Mode of Delivery Room air Room air
Nasal Cannula flow liters per minute 3
10/05/24
22:42 10/06/24
07:47
Oxygen Mode of Delivery Room air
Nasal Cannula flow liters per minute 2
Clarify which of the following accurately represents the patient's respiratory status following surgery:
Acute post-op pulmonary insufficiency
Hypoxia
Other
Unable to determine
Additional information for Pulmonary Insufficiency:
Consider when patients require fci oxygen therapy postoperatively
Weaned off oxygen initially then requiring supplemental oxygen
No other definitive diagnosis to support the need for oxygen (COPD exac, CHF etc.)
Unable to wean from vent
When criteria for respiratory failure not present
May extend stay or require additional resources; may need home O2
Use of terms such as suspected, likely, concern for, or probable (associated with a specific diagnosis that is being evaluated, monitored, or treated as if it exists) are acceptable and can be coded in the inpatient setting, when documented at the
time of discharge.
Thank you,
Hannah Bojorquez RN, BSN
CDI Specialist
Available via [place] text
Please use your independent medical judgment in providing your response.
== END 2024-10-06 13:45 | disposition home or self-care (01) | DRG 233 ==
LOC: CVICU 12:56
PROVIDERS: Anesthesiology; Internal Medicine; Nurse Practitioner; Nurse Practitioner Adult Health; Physician Assistant; Physician Assistant Medical; ADMITTING PHYSICIAN Internal Medicine; ATTENDING PHYSICIAN Thoracic Surgery (Cardiothoracic Vascular Surgery); CONSULT PHYSICIAN Internal Medicine Critical Care Medicine; EMERGENCY PHYSICIAN Student in an Organized Health Care Education/Training Program; FAMILY PHYSICIAN Family Medicine; OTHER PHYSICIAN Internal Medicine Interventional Cardiology
PROC: 4A023N7 Measurement of Cardiac Sampling and Pressure, Left Heart, Percutaneous Approach (ICD-10-PCS; 2024-09-28)
PROC: B2111ZZ Fluoroscopy of Multiple Coronary Arteries using Low Osmolar Contrast (ICD-10-PCS; 2024-09-28)
PROC: B2151ZZ Fluoroscopy of Left Heart using Low Osmolar Contrast (ICD-10-PCS; 2024-09-28)
PROC: 06BP4ZZ Excision of Right Saphenous Vein, Percutaneous Endoscopic Approach (ICD-10-PCS; 2024-10-02)
PROC: 5A1221Z Performance of Cardiac Output, Continuous (ICD-10-PCS; 2024-10-02)
PROC: 021209W Bypass Coronary Artery, Three Arteries from Aorta with Autologous Venous Tissue, Open Approach (ICD-10-PCS; 2024-10-02)
PROC: 02100ZC Bypass Coronary Artery, One Artery from Thoracic Artery, Open Approach (ICD-10-PCS; 2024-10-02)
PROC: B24BZZ4 Ultrasonography of Heart with Aorta, Transesophageal (ICD-10-PCS; 2024-10-02)
DX: I25.110 Atherosclerotic heart disease of native coronary artery with unstable angina pectoris (principal); J95.1 Acute pulmonary insufficiency following thoracic surgery; D62 Acute posthemorrhagic anemia; J98.11 Atelectasis; J91.8 Pleural effusion in other conditions classified elsewhere; N17.9 Acute kidney failure, unspecified; I10 Essential (primary) hypertension; E66.811 Obesity, class 1; Y83.2 Surgical operation with anastomosis, bypass or graft as the cause of abnormal reaction of the patient, or of later complication, without mention of misadventure at the time of the procedure; D69.59 Other secondary thrombocytopenia; R09.02 Hypoxemia; E87.70 Fluid overload, unspecified; E86.1 Hypovolemia; N99.0 Postprocedural (acute) (chronic) kidney failure; E11.65 Type 2 diabetes mellitus with hyperglycemia; E78.1 Pure hyperglyceridemia; Z59.71 Insufficient health insurance coverage; Z68.37 Body mass index [BMI] 37.0-37.9, adult; Z79.84 Long term (current) use of oral hypoglycemic drugs; Z79.899 Other long term (current) drug therapy; Z82.49 Family history of ischemic heart disease and other diseases of the circulatory system; Z87.891 Personal history of nicotine dependence
CPT/HCPCS: 71045; 71046; 71250; 76937; 80048; 80053; 80061; 81003; 81015; 82248; 82330; 82565; 82805; 82947; 82962; 83036; 83721; 83735; 84132; 84302; 84484; 84520; 85014; 85018; 85025; 85027; 85049; 85347; 85610; 85730; 86850; 86900; 86901; 86920; 93005; 93306; 93312; 93320; 93325; 93458; 93880; 94002; 96361; 96374; 99152; 99153; 99285; C1894; P9047; Q9967

== ENCOUNTER 2024-11-08 15:35 | Outpatient (RCR) | payer OTHER, SELFPAY ==
[2024-11-08 14:46] LABS: Glucose - Point of Care 117 mg/dl (70-99)
[2024-11-08 15:26] LABS: Glucose - Point of Care 108 mg/dl (70-99)
== END 2024-11-08 23:59 | disposition home or self-care (01) ==
LOC: CRHB 15:35
PROVIDERS: ATTENDING PHYSICIAN Internal Medicine Cardiovascular Disease; FAMILY PHYSICIAN Physician Assistant Medical
DX: Z95.1 Presence of aortocoronary bypass graft (principal)
CPT/HCPCS: 82962; 93798